=== PATIENT | female | born 1955 | race Caucasian/White ===

== ENCOUNTER → 2017-07-15 11:55 | Outpatient (CLI) | payer OTHER, SELFPAY | PROVIDERS: PCP Family Medicine; Visit Provider Physician Assistant | DX: R30.0 Dysuria (principal) | CPT/HCPCS: 87086 ==

== ENCOUNTER → 2017-09-07 14:26 | Outpatient (CLI) | payer OTHER, SELFPAY ==
[2017-09-07 14:47] LABS: Add Manual Diff / Slide Review NO; Basophils Percent Auto 0.6 % (0-2); Eosinophils Percent Auto 2.7 % (2-4); Hematocrit 40.4 % (36-46); Hemoglobin 13.7 g/dL (12.0-16.0); Lymphocytes Percent Auto 29.3 % (25-40); Mean Corpuscular HGB Conc 33.8 % (30-36); Mean Corpuscular Hemoglobin 30.6 PG (26-34); Mean Corpuscular Volume 90.7 fL (80-100); Monocytes Percent Auto 8.2 % (3-14); Neutrophils Absolute Auto 4600 /uL (3000-5900); Neutrophils Percent Auto 59.2 % (50-75); Platelet Count 224 X10^3/uL (150-400); Red Blood Cell Count 4.46 X10^6/uL (4.0-5.2); Red Cell Distribution Width 14.6 % (11.6-14.8); White Blood Cell Count 7.7 X10^3/uL (4.5-11.0)
[2017-09-07 14:59] LABS: Alanine Aminotransferase 33 IU/L (9-52); Albumin 4.9 g/dL (3.5-5.0); Albumin Globulin Ratio 1.5 (1.0-2.8); Alkaline Phosphatase 108 U/L (38-126); Aspartate Aminotransferase 36 IU/L (14-36); BUN Creatinine Ratio 20.9 (6-22); Bilirubin Total 0.9 mg/dL (0.2-1.3); Blood Urea Nitrogen 23 mg/dL (7-17); Calcium 10.4 mg/dL (8.4-10.2); Carbon Dioxide 26 mmol/L (22-32); Chloride 99 mmol/L (98-107); Estimated Glomerular Filt Rate 50.5 mL/min (>60); Globulin 3.3 g/dL (1.7-4.1); Glucose 181 mg/dL (80-110); HEMOLYSIS < 15 (0-50); Potassium 3.7 mmol/L (3.4-5.1); Sodium 140 mmol/L (137-145); Total Protein 8.2 g/dL (6.3-8.2)
[2017-09-07 15:01] LABS: Hemoglobin A1C% w Est Avg Glu 7.5 % (4.0-6.0)
[2017-09-07 15:18] LABS: Creatinine Urine Random 78.7 mg/dL
[2017-09-07 15:21] LABS: Microalbumi Creatinin Ratio Ur 43.2 ug/mg CR (<30); Microalbumin Urine Random 3.4 mg/dL (0-1.6)
[2017-09-07 15:45] LABS: TSH w/ Reflex to FT4 1.11 uIU/mL (0.47-4.68)
== END ==
PROVIDERS: Visit Provider Nurse Practitioner Family
DX: I10 Essential (primary) hypertension (principal); E11.9 Type 2 diabetes mellitus without complications
CPT/HCPCS: 36415; 80053; 82043; 82570; 83036; 84443; 85025

== ENCOUNTER → 2017-09-15 12:32 | Outpatient (CLI) | payer OTHER, SELFPAY ==
[2017-09-15 13:57] LABS: Cholesterol 152 mg/dL (140-199); HDL Cholesterol 44 mg/dL (40-60); LDL Cholesterol Calculated 59 mg/dL (<100); Triglycerides 245 mg/dL (35-150)
== END ==
PROVIDERS: PCP Family Medicine; Visit Provider Nurse Practitioner Family
DX: E11.9 Type 2 diabetes mellitus without complications (principal)
CPT/HCPCS: 36415; 80061; 99213

== ENCOUNTER 2017-10-01 13:26 | Emergency (ER) | payer OTHER, SELFPAY ==
[2017-10-01 13:27] VITALS: BP 159/98; PULSE 87; RESP 20; TEMP 36.7; O2SAT 95; BMI 37.4
--- NOTE | 2017-10-01 13:32 | DI.RAD.S_ITS ---
PROCEDURE: XR TOE RT MIN 2V INDICATIONS: injury, deformity TECHNIQUE: 3 views of the right fifth toe(s) acquired. COMPARISON: [facility] [place], [place], XR FOOT 3+ VIEWS BILATERAL, 09/27/2017, 7:34. FINDINGS: Evaluation is limited by difficulties with patient positioning. Bones: Mildly displaced fracture of the distal aspect of the proximal phalanx of the fifth digit. No suspicious bony lesions. Chronic periosteal thickening involving the shafts of the second, third, and fourth metatarsals, as before. Soft tissues: No suspicious soft tissue densities. IMPRESSION: Fifth digit fracture. Dictated by: Patricio Obrien M.D. on 10/01/2017 at 13:48 Approved by: Patricio Obrien M.D. on 10/01/2017 at 13:50
--- NOTE | 2017-10-01 15:26 | ED_ITS ---
HPI - Extremity Injury (Lower) <Funmi Cobian PA-C - Last Filed: 10/01/17 21:36> General Chief Complaint: Extremity Injury, Lower Stated Complaint: LITTLE TOE ON RIGHT FOOT POSS BROKEN Time Seen by Provider: 10/01/17 15:14 Source: patient Mode of arrival: ambulatory Limitations: no limitations History of Present Illness HPI Narrative: This 62-year-old female states that she moved on the floor from her right knee down onto the side of her leg and thinks she awkwardly hit or bent her right little toe in the process. She denies any other injury, but is sure that she broke it as she has had a fracture on the other side in the past. She states that the toe is quite painful even with reduced sensation from her neuropathy. She denies any other injury or trauma. She states that she has Percocet at home but unable to take this due to nausea with it. She is out of [facility]. Related Data Home Medications Medication Instructions Recorded Confirmed ASPIRIN (Aspirin Low Dose) 81 mg PO Q DAY #0 02/17/08 09/15/17 MULTIVITAMIN (Multivitamin 1 cap PO EVERY DAY #0 02/17/08 09/15/17 -) atorvastatin [Lipitor] PO HS #0 12/26/15 09/15/17 Previous Rx's Medication Instructions Recorded diltiazem HCl 120 mg PO QDAY #90 tab 10/17/15 cyclobenzaprine 10 mg PO BID PRN #60 tab 09/09/16 ondansetron [Zofran ODT] 4 mg SUBLINGUAL Q6HP PRN #30 odt 09/09/16 [SEE MAKERS FAX] SEE INSTRUCTIONS #15 11/03/16 [pen needles] units SQ 5XD #450 12/07/16 losartan [Cozaar] 25 mg PO Q DAY #90 mg 02/08/17 insulin lispro [Humalog U-100 15 - 20 unit SQ QID #5 box 03/24/17 Insulin] phenazopyridine [Pyridium] 200 mg PO TID #15 tab 04/19/17 montelukast 10 mg tablet 10 mg PO QDAY #90 tab 07/04/17 pantoprazole 40 mg tablet,delayed 40 mg PO BID #180 tab 07/12/17 release levothyroxine 137 mcg tablet 137 mcg PO QAM #90 tab 08/02/17 metformin 500 mg tablet 500 mg PO QDAY #90 tab 08/23/17 Glucose: Test Strips 0 str TP 5XD #450 str 08/25/17 gabapentin 300 mg capsule 300 mg PO BID #120 cap 09/13/17 hydrochlorothiazide 25 mg tablet 25 mg PO QDAY #90 tab 09/13/17 ibuprofen 800 mg tablet 800 mg PO Q8HP PRN #30 tab 09/13/17 insulin glargine (U-100) 100 See Label Instructions SUBCUT BID 09/13/17 unit/mL subcutaneous solution #6 unit oxycodone-acetaminophen 5 mg-325 1 tab PO Q6HP PRN #30 tab 09/13/17 mg tablet furosemide 20 mg tablet 20 mg PO PRN #90 tab 09/15/17 potassium chloride ER 20 mEq 20 meq PO DAILY PRN #90 tab 09/15/17 tablet,extended release ondansetron [Zofran ODT] 4 mg PO Q6-8H PRN #7 tab 10/01/17 Allergies Allergy/AdvReac Type Severity Reaction Status Date / Time clindamycin [CLINDAMYCIN] Allergy Unknown Verified 09/15/17 09:04 codeine [CODEINE] Allergy Unknown Verified 09/15/17 09:04 hydrocodone [HYDROCODONE] Allergy Unknown Verified 09/15/17 09:04 meperidine [MEPERIDINE] Allergy Unknown Verified 09/15/17 09:04 methadone [METHADONE] Allergy Unknown Verified 09/15/17 09:04 prednisone [PREDNISONE] Allergy Unknown hives Verified 09/15/17 09:04 Sulfa (Sulfonamide Allergy Unknown Verified 09/15/17 09:04 Antibiotics) [SULFA (SULFONAMIDE ANTIBIOTICS)] Review of Systems <Funmi Cobian PA-C - Last Filed: 10/01/17 21:36> Review of Systems All systems reviewed & are unremarkable except as noted in HPI and below Exam <Funmi Cobian PA-C - Last Filed: 10/01/17 21:36> Narrative Exam Narrative: GENERAL APPEARANCE: Patient sitting comfortably, in no distress. LUNGS: Clear to auscultation bilaterally. HEART: Rate and rhythm regular without murmur, normal S1 and S2, no S3 or S4. EXTREMITIES: No cyanosis or edema, right pedal pulses intact, brisk cap refill , right foot sensation is grossly intact DERMATOLOGIC: Right foot and toes, no open MUSCULOSKELETAL: Right mid to lateral toes all have some flexor deformity at the PIP joints, more pronounced in the little toe. They all appear similarly aligned. There is mild effusion in the right 5th toe, tender to palpation. No tenderness over the metatarsals or ankle joint, no tenderness over the other toes Initial Vital Signs Initial Vital Signs: Vital Signs Temperature 98.1 F 10/01/17 13:27 Pulse Rate 87 10/01/17 13:27 Respiratory Rate 20 10/01/17 13:27 Blood Pressure 159/98 H 10/01/17 13:27 Pulse Oximetry 95 10/01/17 13:27 <Tylor Fields MD - Last Filed: 10/02/17 07:42> Initial Vital Signs Initial Vital Signs: Vital Signs Temperature 98.1 F 10/01/17 13:27 Pulse Rate 87 10/01/17 13:27 Respiratory Rate 20 10/01/17 13:27 Blood Pressure 159/98 H 10/01/17 13:27 Pulse Oximetry 95 10/01/17 13:27 Course <Funmi Cobian PA-C - Last Filed: 10/01/17 21:36> Additional Information: Toes were karina taped and patient was able to ambulate. Orders Ordered: Discontinued Medications Ondansetron HCl (Zofran Odt) 4 mg PO NOW ONE Stop: 10/01/17 15:36 Last Admin: 10/01/17 15:42 Dose: 4 mg Oxycodone/Acetaminophen (Percocet 5/325) 1 tab PO NOW ONE Stop: 10/01/17 15:36 Last Admin: 10/01/17 15:45 Dose: 1 tab Vital Signs - 8 hr 10/01/17 13:27 Temperature 98.1 F Pulse Rate 87 Respiratory Rate 20 Blood Pressure 159/98 H Pulse Oximetry 95 <Tylor Fields MD - Last Filed: 10/02/17 07:42> Orders Ordered: Discontinued Medications Ondansetron HCl (Zofran Odt) 4 mg PO NOW ONE Stop: 10/01/17 15:36 Last Admin: 10/01/17 15:42 Dose: 4 mg Oxycodone/Acetaminophen (Percocet 5/325) 1 tab PO NOW ONE Stop: 10/01/17 15:36 Last Admin: 10/01/17 15:45 Dose: 1 tab Vital Signs - 8 hr 10/01/17 13:27 Temperature 98.1 F Pulse Rate 87 Respiratory Rate 20 Blood Pressure 159/98 H Pulse Oximetry 95 MDM - Extremity Injury (Lower) <Funmi Cobian PA-C - Last Filed: 10/01/17 21:36> Imaging Data extremity: Radiologist's impression: [address] [address] XRay Report Signed Patient: Meri Patino MR#: [id number] : 1955 Acct:[id number] Age/Sex: 62 / F Date of Service: 10/01/17 Loc: ED Accession Number: [id number] Procedure: XR toe RT min 2V Ordering Provider: Funmi Cobian P.A-C PROCEDURE: XR TOE RT MIN 2V INDICATIONS: injury, deformity TECHNIQUE: 3 views of the right fifth toe(s) acquired. COMPARISON: [facility], XR FOOT 3+ VIEWS BILATERAL, 09/27/2017, 7:34. FINDINGS: Evaluation is limited by difficulties with patient positioning. Bones: Mildly displaced fracture of the distal aspect of the proximal phalanx of the fifth digit. No suspicious bony lesions. Chronic periosteal thickening involving the shafts of the second, third, and fourth metatarsals, as before. Soft tissues: No suspicious soft tissue densities. IMPRESSION: Fifth digit fracture. Dictated by: Patricio Obrien M.D. on 10/01/2017 at 13:48 Approved by: Patricio Obrien M.D. on 10/01/2017 at 13:50 Discharge Plan Departure Patient Disposition: Home Clinical Impression: Closed fracture of toe Discharge Date/Time: 10/01/17 16:25 Interventions: ED Discharge Assessment Last Done: 10/01/17 16:25 Instructions: DI for Toe Fracture Activity Restrictions/Additional Instructions: You should return if you have any acutely worsening pain or new symptoms such as fever or more swelling, otherwise you can take your pain medicine you have at home as needed. I have sent in some antinausea medicine for you to take with that. Please keep the toes taped together for comfort and protection for 1 -2 months, and you should also wearing a stiff-soled shoe. Prescriptions: New ondansetron [Zofran ODT] 4 mg tablet,disintegrating 4 mg PO Q6-8H PRN (Reason: nausea/pain meds) Qty: 7 RF: 0 No Action ASPIRIN (Aspirin Low Dose) 81 mg PO Q DAY Qty: 0 RF: 0 MULTIVITAMIN (Multivitamin -) 1 cap PO EVERY DAY Qty: 0 RF: 0 diltiazem HCl 120 MG capsule,extended release 24hr 120 mg PO QDAY Qty: 90 RF: 3 atorvastatin [Lipitor] 20 mg Tablet PO HS Qty: 0 RF: 0 cyclobenzaprine 10 MG tablet 10 mg PO BID PRNQty: 60 RF: 3 ondansetron [Zofran ODT] 4 MG tablet,disintegrating 4 mg Sublingual Q6HP PRNQty: 30 RF: 3 [SEE MAKERS FAX] SEE INSTRUCTIONS Qty: 15 RF: 0 [pen needles] SQ 5XD Qty: 450 RF: 3 losartan [Cozaar] 25 MG tablet 25 mg PO Q DAY Qty: 90 RF: 3 insulin lispro [Humalog U-100 Insulin] 100 UNIT/1 ML cartridge 15 - 20 unit SQ QID Qty: 5 RF: 5 phenazopyridine [Pyridium] 200 MG tablet 200 mg PO TID Qty: 15 RF: 0 montelukast [Singulair] 10 mg tablet 10 mg PO QDAY Qty: 90 RF: 3 pantoprazole [Protonix] 40 mg tablet,delayed release (DR/EC) 40 mg PO BID Qty: 180 RF: 3 levothyroxine [Synthroid] 137 mcg tablet 137 mcg PO QAM Qty: 90 RF: 3 metformin [Glucophage] 500 mg tablet 500 mg PO QDAY Qty: 90 RF: 3 Glucose: Test Strips TP 5XD Qty: 450 RF: 6 furosemide [Lasix] 20 mg tablet 20 mg PO PRN Qty: 90 RF: 3 potassium chloride 20 mEq tablet extended release 20 meq PO DAILY PRN (Reason: edema) Qty: 90 RF: 3 hydrochlorothiazide 25 mg tablet 25 mg PO QDAY Qty: 90 RF: 3 gabapentin 300 mg capsule 300 mg PO BID Qty: 120 RF: 2 ibuprofen 800 mg tablet 800 mg PO Q8HP PRN (Reason: inflammation) Qty: 30 RF: 6 oxycodone-acetaminophen [Percocet] 5-325 mg tablet 1 tab PO Q6HP PRN (Reason: pain) Qty: 30 RF: 0 insulin glargine [Lantus U-100 Insulin] 100 unit/mL solution See Label Instructions SUBCUT BID Qty: 6 RF: 4 Referrals: She Tate DO [Primary Care Provider] - <Tylor Fields MD - Last Filed: 10/02/17 07:42> Sign Out Provider Sign Out Attestation: The PA/SUPERINTENDENT TRACK functioned independently for the care of this pt, I was available, but not asked to participate in care. I am unable to determine appropriateness of management without personally examining the pt.
[2017-10-01] MEDS: ONDANSETRON 4 MG ODT PO (15:42)
[2017-10-01] MEDS: OXYCODONE/ACETAMINOPHEN 5/325 TABLET 1 TAB PO (15:45)
== END 2017-10-01 16:25 | disposition home or self-care (01) ==
PROVIDERS: Emergency Provider Internal Medicine; PCP Family Medicine
DX: S92.501A Displaced unspecified fracture of right lesser toe(s), initial encounter for closed fracture (principal); W22.8XXA Striking against or struck by other objects, initial encounter
CPT/HCPCS: 73660; 99282; 99283

== ENCOUNTER → 2017-10-10 12:30 | Outpatient (CLI) | payer OTHER, SELFPAY | PROVIDERS: PCP Family Medicine; Visit Provider Physician Assistant | DX: N30.01 Acute cystitis with hematuria (principal) | CPT/HCPCS: 87077; 87086; 87186 ==

== ENCOUNTER → 2017-11-25 12:16 | Outpatient (CLI) | payer OTHER, SELFPAY | PROVIDERS: PCP Family Medicine; Visit Provider Physician Assistant | DX: N30.91 Cystitis, unspecified with hematuria (principal) | CPT/HCPCS: 87077; 87086 ==

== ENCOUNTER → 2017-12-19 17:07 | Outpatient (CLI) | payer OTHER, SELFPAY ==
[2017-12-19 17:38] LABS: Add Manual Diff / Slide Review NO; Basophils Percent Auto 0.7 % (0-2); Eosinophils Percent Auto 3.5 % (2-4); Hematocrit 41.1 % (36-46); Hemoglobin 13.8 g/dL (12.0-16.0); Lymphocytes Percent Auto 29.6 % (25-40); Mean Corpuscular HGB Conc 33.6 % (30-36); Mean Corpuscular Hemoglobin 30.7 PG (26-34); Mean Corpuscular Volume 91.4 fL (80-100); Monocytes Percent Auto 9.4 % (3-14); Neutrophils Absolute Auto 4300 /uL (3000-5900); Neutrophils Percent Auto 56.8 % (50-75); Platelet Count 235 X10^3/uL (150-400); Red Cell Distribution Width 14.9 % (11.6-14.8); White Blood Cell Count 7.7 X10^3/uL (4.5-11.0)
[2017-12-19 17:45] LABS: Hemoglobin A1C% w Est Avg Glu 7.7 % (4.0-6.0)
[2017-12-19 17:58] LABS: Alanine Aminotransferase 42 IU/L (9-52); Albumin 4.9 g/dL (3.5-5.0); Albumin Globulin Ratio 1.5 (1.0-2.8); Alkaline Phosphatase 119 U/L (38-126); Aspartate Aminotransferase 35 IU/L (14-36); Bilirubin Total 0.5 mg/dL (0.2-1.3); Blood Urea Nitrogen 22 mg/dL (7-17); Calcium 10.7 mg/dL (8.4-10.2); Carbon Dioxide 34 mmol/L (22-32); Chloride 98 mmol/L (98-107); Estimated Glomerular Filt Rate 50.5 mL/min (>60); Globulin 3.2 g/dL (1.7-4.1); Glucose 90 mg/dL (80-110); HEMOLYSIS < 15 (0-50); Potassium 4.2 mmol/L (3.4-5.1); Sodium 146 mmol/L (137-145); Total Protein 8.1 g/dL (6.3-8.2)
== END ==
PROVIDERS: PCP Family Medicine; Visit Provider Podiatrist
DX: Z01.818 Encounter for other preprocedural examination (principal); L97.512 Non-pressure chronic ulcer of other part of right foot with fat layer exposed; E11.42 Type 2 diabetes mellitus with diabetic polyneuropathy; S92.911A Unspecified fracture of right toe(s), initial encounter for closed fracture; Z01.812 Encounter for preprocedural laboratory examination; E11.9 Type 2 diabetes mellitus without complications
CPT/HCPCS: 36415; 80053; 83036; 85025; 93005

== ENCOUNTER → 2018-01-02 14:37 | Outpatient (CLI) | payer OTHER, SELFPAY | PROVIDERS: Family Provider Podiatrist; PCP Family Medicine; Visit Provider Family Medicine | DX: M85.852 Other specified disorders of bone density and structure, left thigh (principal); Z78.0 Asymptomatic menopausal state; E11.9 Type 2 diabetes mellitus without complications | CPT/HCPCS: 77080 ==

== ENCOUNTER → 2018-03-21 08:46 | Outpatient (CLI) | payer OTHER, SELFPAY ==
[2018-03-21 11:03] LABS: Hemoglobin A1C% w Est Avg Glu 7.9 % (4.0-6.0)
[2018-03-21 11:15] LABS: BUN Creatinine Ratio 17.3 (6-22); Blood Urea Nitrogen 19 mg/dL (7-17); Calcium 9.3 mg/dL (8.4-10.2); Carbon Dioxide 30 mmol/L (22-32); Chloride 100 mmol/L (98-107); Estimated Glomerular Filt Rate 50.5 mL/min (>60); Glucose 111 mg/dL (80-110); HEMOLYSIS 32 (0-50); Potassium 3.3 mmol/L (3.4-5.1); Sodium 141 mmol/L (137-145)
== END ==
PROVIDERS: Family Provider Podiatrist; PCP Family Medicine; Visit Provider Family Medicine
DX: E11.9 Type 2 diabetes mellitus without complications (principal)
CPT/HCPCS: 36415; 80048; 83036

== ENCOUNTER → 2018-04-01 11:19 | Outpatient (CLI) | payer OTHER, SELFPAY | PROVIDERS: Family Provider Podiatrist; PCP Family Medicine; Visit Provider Physician Assistant | DX: R30.0 Dysuria (principal) | CPT/HCPCS: 87077; 87086; 87186 ==

== ENCOUNTER → 2018-05-03 10:07 | Outpatient (CLI) | payer OTHER, SELFPAY ==
--- NOTE | 2018-05-03 14:11 | DIET.PN ---
DIABETES Nutrition Initial Assessment:? ASSESS:?? 63 yof seen for long standing history of type2 diabetes. Reports family hx of diabetes and that she was DX when she was 22. States she followed a diabetes diet for 12 yrs and was then told she no longer had DM. She has had uncontrolled DM since then. Pt recently started on the ketogenic diet which she has tried before. States since starting 2 weeks ago, blood glucose numbers have been significantly lower. She has been following a food tracker on her phone which counts all macronutrients. Reports she discontinued taking her metformin due to chronic GI complications and has stopped using Humalog as she was having low BG. LABS: Per pt report:? A1c: 7.9 FB-105 Tri ? MEDS:?? (active): lantus 25u BID (down from 40u) (discontinued): metformin 1000mg BID ; Humalog 15 u meals ? DIET: Calories: [id number] Carb: 30g Pro: 130g Fat:130g ? Weight: 253 (down from 261 x 2wk ago) Ht: 68.5? Exercise:? Just completed PT and is able to start walking again since recent foot surgery. NUTRITION DX 1. Altered Nutrition related labs related to impaired glucose metabolism, lack of previous exposure to accurate nutrition information as evidenced by pt report, dx of diabetes, previous diet high in refined carbohydrates.? INTERVENTION(s): 1. Discussed pathophysiology of diabetes. Reviewed A1c and its correlation to blood glucose numbers. Discussed recommended BG ranges. 2. Discussed importance of self-monitoring, how often, and when to check. 3. Reviewed hyper/hypoglycemia and treatment. 4. Discussed impact of nutrition/diet on blood sugar control.? Discussed fed versus non-fed state.?? 5. Discussed the effect of carbohydrates/protein/fat on blood sugar control.? Stressed importance of consistent carbohydrate intake at each meal and provided instructions for recommended servings/portions of carbohydrates/protein per meal. Provided pt with educational material. 6. Reviewed carbohydrate counting and measuring carbohydrate content via serving sizes and reading nutrition labels.? Provided handouts.?? 7. Discussed the difference between simple versus complex carbohydrates and the effect of fiber on blood sugar control.? Discussed various methods to increase fiber content in diet. 8. Stressed importance of meal timing and not going >4-5 hours between meals. Encouraged adding protein to each meal to support glucose control. Provided list of protein foods. Discussed best protein options for heart health and to alleviate hunger. Patient agreeable. 9. Discussed healthy weight loss through diet and exercise to increase lean muscle mass.? Pt agreeable to walking daily. 10. Recommended pt discuss medication management with PCP. MONITOR/EVALUATE: Anticipate good compliance.? Nutrition follow up schedule for 2 mo to review BG, weight, food record and discuss protein/fat.
== END ==
PROVIDERS: Family Provider Podiatrist; PCP Family Medicine; Visit Provider Family Medicine
DX: E11.9 Type 2 diabetes mellitus without complications (principal); Z79.4 Long term (current) use of insulin
CPT/HCPCS: 97802

== ENCOUNTER 2018-07-17 11:56 | Day surgery (SDC) | payer OTHER, SELFPAY ==
[2018-07-17] MEDS: SODIUM CHLORIDE 0.9% 1,000 ML 200 ML IV (12:32)
[2018-07-17 12:33] VITALS: BP 141/71; PULSE 82; RESP 16; TEMP 36.6; O2SAT 97; BMI 35.9
--- NOTE | 2018-07-17 13:29 | PM.HP.1 ---
History of Present Illness Date Patient Seen: 07/17/18 Time Patient Seen: 13:30 Chief complaint: [address] SCREENING COLONOSCOPY Narrative: Asymptomatic patient here for screening colonoscopy Patient History Medical History Essential hypertension (01/30/03) Type 2 diabetes mellitus (10/08/03) CTS (carpal tunnel syndrome) (Chronic 2015) Cardiac arrhythmia (Chronic) Chronic back pain (Chronic ~1987) Chronic cough (Chronic) Chronic headaches (Chronic ~1985) Diabetes mellitus (Chronic 1977) Frequent UTI (Chronic) GERD (gastroesophageal reflux disease) (Chronic) Gastroparesis (Chronic) Hayfever (Chronic) Hemorrhoids (Chronic) Hypothyroidism (Chronic 1999) Left knee pain (Chronic ~2001) Neuropathic pain of foot (Chronic ~1987) Osteoarthritis (Chronic 2013) Peripheral neuropathy (Chronic) Sleep apnea (Chronic) Ventricular tachycardia (Chronic) Anemia (Resolved) Asthma (Resolved) Ugalde's esophagus (Resolved 2012) Chicken pox (Resolved 1969) Foot fracture, left (Resolved 1989) Measles (Resolved 1962) Mumps (Resolved ~1969) Plantar warts (Resolved ~1972) Recurrent sinusitis (Resolved ~1976) Toe fracture, left (Resolved 2013) Vertigo (Resolved) Surgical History Anesthesia (Resolved) History of carpal tunnel release (Resolved 2014) History of cholecystectomy (Resolved ~2005) History of eye surgery (Resolved 1961) History of left knee surgery (Resolved 1972) History of surgery (Resolved 1999) History of thumb surgery (Resolved 2014) History of verrucae (wart) excision (Resolved 1974) Status post discectomy (Resolved 1999) Status post knee surgery (Resolved 2001) Status post laminectomy (Resolved 1987) Family History Child Age: 37 Mentally disabled Low TSH level Encephalitis Father Age: 86 Pacemaker Heart disease Hypertension Mother Diabetes mellitus High cholesterol Brain tumor Sister Age: 65 Hypertension Sister Age: 60 Diabetes mellitus Heart disease Hypertension High cholesterol Brother Diabetes mellitus Brother Hypertension Social History household members: spouse and family Smoking Status: Former smoker Family & Social History Family History Child Age: 37 Mentally disabled Low TSH level Encephalitis Father Age: 86 Pacemaker Heart disease Hypertension Mother Diabetes mellitus High cholesterol Brain tumor Sister Age: 65 Hypertension Sister Age: 60 Diabetes mellitus Heart disease Hypertension High cholesterol Brother Diabetes mellitus Brother Hypertension Social History: household members spouse,family Tobacco & Substance use: Smoking Status Former smoker Substance Use Type does not use Meds Home Medications Medication Instructions Recorded Confirmed Type ASPIRIN (Aspirin Low Dose) 81 mg PO Q DAY #0 02/17/08 07/17/18 History MULTIVITAMIN (Multivitamin 1 cap PO EVERY DAY #0 02/17/08 04/01/18 History -) atorvastatin [Lipitor] 20 mg PO HS #0 12/26/15 07/17/18 History levothyroxine 137 mcg tablet 137 mcg PO QAM #90 tab 08/02/17 04/01/18 Rx Glucose: Test Strips 0 str TP 5XD #450 str 08/25/17 04/01/18 Rx hydrochlorothiazide 25 mg tablet 25 mg PO QDAY #90 tab 09/13/17 07/17/18 Rx ibuprofen 800 mg tablet 800 mg PO Q8HP PRN #30 tab 09/13/17 07/17/18 Rx furosemide 20 mg tablet 20 mg PO PRN #90 tab 09/15/17 07/17/18 Rx potassium chloride ER 20 mEq 20 meq PO DAILY PRN #90 tab 09/15/17 04/01/18 Rx tablet,extended release cyclobenzaprine 10 mg tablet 10 mg PO BID PRN #60 tab 10/19/17 07/17/18 Rx [pen needles] units SQ 5XD #450 11/07/17 04/01/18 Rx cetirizine 10 mg capsule 10 mg PO DAILY 12/20/17 07/17/18 History diltiazem CD 120 mg 120 mg PO DAILY 12/20/17 07/17/18 History capsule,extended release 24 hr eszopiclone 3 mg tablet 3 mg PO BEDTIME 12/20/17 07/17/18 History losartan 25 mg tablet 25 mg PO Q DAY #90 mg 01/03/18 04/01/18 Rx insulin lispro (U- 100) 100 See Rx Instructions SUBCUT QID #15 04/03/18 07/17/18 Rx unit/mL subcutaneous cartridge ml pantoprazole 40 mg tablet,delayed 40 mg PO BID #180 tab 05/29/18 07/17/18 Rx release ondansetron HCl 4 mg tablet 4 mg PO Q6-8H PRN #30 tab 06/26/18 07/17/18 Rx montelukast 10 mg tablet 10 mg PO QDAY #90 tab 06/27/18 Rx gabapentin 300 mg PO QID 07/17/18 07/17/18 History insulin glargine [Lantus Solostar 42 unit SUBCUT BID 07/17/18 History U-100 Insulin] Allergies Allergy/AdvReac Type Severity Reaction Status Date / Time clindamycin [CLINDAMYCIN] Allergy Unknown Verified 04/01/18 11:08 codeine [CODEINE] Allergy Unknown Verified 04/01/18 11:08 hydrocodone [HYDROCODONE] Allergy Unknown Verified 04/01/18 11:08 meperidine [MEPERIDINE] Allergy Unknown Verified 04/01/18 11:08 methadone [METHADONE] Allergy Unknown Verified 04/01/18 11:08 prednisone [PREDNISONE] Allergy Unknown hives Verified 04/01/18 11:08 Sulfa (Sulfonamide Allergy Unknown Verified 04/01/18 11:08 Antibiotics) [SULFA (SULFONAMIDE ANTIBIOTICS)] Review of Systems Review of Systems All systems reviewed & are unremarkable except as noted in HPI and below Exam Vital Signs (past 8 hours): - 07/17/18 12:33 Temperature 97.9 F Pulse Rate 82 Respiratory Rate 16 Blood Pressure 141/71 H Pulse Oximetry 97 Oxygen Delivery Method Room Air Narrative Exam Narrative: Patient is alert and oriented Lungs are clear with no rales or wheezes Heart regular rhythm no murmur Abdomen soft and nontender Rectal will be done at colonoscopy Assessment & Plan Assessment & Plan narrative: Patient is here for screening colonoscopy she understands the procedure and agrees
[2018-07-17] MEDS: fentaNYL 250 MCG/5 ML INJ IV (14:00)
[2018-07-17] MEDS: MIDAZOLAM 5 MG/5 ML VIAL IV (14:01)
--- NOTE | 2018-07-17 14:04 | PM.OP.ENDO ---
Operative Date/Time/Diagnoses Date of procedure: 07/17/18 Time of procedure: 14:04 Pre-op diagnosis: Screening colonoscopy Post-op diagnosis: same Procedure & Clinicians Study performed: Total colonoscopy to the cecum Same procedure as scheduled: Yes Surgeon: Benjamín Young Procedure Notes SCOAP/Timeout: Was done Procedure in detail: After satisfactory patient identification during surgical pause the flexible fiberoptic colonoscope was introduced transanally to the cecum. There are no polyps no tumors no ulcerations no diverticulosis. No abnormalities were encountered. Scope withdrawal time: 7 Sedation minutes: 20 Specimen(s): none sent Complications: none Impression: Normal colonoscopy Recommendations: Colonscopy in 10 years
[2018-07-17 14:07] VITALS: BP 131/70; PULSE 69; RESP 14; TEMP 36.2; O2SAT 95
[2018-07-17 14:12] VITALS: BP 131/66; PULSE 68; RESP 9; O2SAT 94
[2018-07-17 14:17] VITALS: BP 145/79; PULSE 78; RESP 13; O2SAT 96
[2018-07-17 14:25] VITALS: BP 114/70; PULSE 79; RESP 18; TEMP 36.1; O2SAT 96
== END 2018-07-17 14:54 | disposition home or self-care (01) ==
PROVIDERS: PCP Family Medicine; Visit Provider Surgery
PROC: 0DJD8ZZ Inspection of Lower Intestinal Tract, Via Natural or Artificial Opening Endoscopic (ICD-10-PCS; CPT 45378; principal; 2018-07-17 13:45)
DX: Z12.11 Encounter for screening for malignant neoplasm of colon (principal); I10 Essential (primary) hypertension; E11.9 Type 2 diabetes mellitus without complications; Z87.891 Personal history of nicotine dependence; Z79.4 Long term (current) use of insulin
CPT/HCPCS: 45378; 99152; J2250; J3010

== ENCOUNTER → 2018-07-19 10:37 | Outpatient (CLI) | payer OTHER, SELFPAY ==
--- NOTE | 2018-07-19 10:38 | DIET.PN ---
INDIVIDUAL NUTRITION ASSESSMENT? ? ASSESS:?Pt seen for diabetes nutrition F/U. Pt continues to follow ketogenic diet since April. She has been tracking meals on a food tracker which provides calories and macros consumed. Discussed current medication management. Pt discontinued metformin due to diarrhea and has made self adjustments to insulin regimen. Continue to take humalog with adjustments based on pre-prandial BG. Evening BG remain elevated. Pt also complains of chronic pain in feet and jaw making it difficult to sleep. Reports an increase in gabapentin which she believes is causing hand spasms. Pt is scheduled to see an disability manager in August. ? LABS: A1c: 7.9 FB-197 2 hr PP:??67-200 (several >200 during last 2 wks) ? Weight: 245 (down from 253) Meds: Humalog. Pt began dosing insulin based on BG > 100. Ex. 130mg/dl= 13u ; 180mg/dl= 18u Recommended pt discuss with Endo. ? DIET: Filemon: 1600 Carb: 30-35g Fat: 130g Pro: 104g ? EXERCISE:??recently was able to start walking. Up to 4 mi most days. Some water exercise. ? NUTRITION Dx? 1. Altered nutrition related labs r/t type 2 DM, inconsistent carbohydrate intake as evidenced by pt report, dietary recall.?? ? INTERVENTION? 1. Reviewed blood sugar log and implications/reasons for elevated/decreased blood sugar.? Pt with good understanding.? 2. Reviewed carbohydrate counting and importance of consistent carbohydrate intake.? 3. Reviewed meal intake and importance of balanced meals (ren to prevent overeating).??? 4. Provided information on fat/protein intake. Discussed difficulty in fat digestion with gallbladder removal. Discussed possibility of high fat diet causing some GI discomfort and frequent diarrhea. 5. Provided information on sick day guidelines. Goals: 1. Pt to discuss med management at endocrinology visit. 2. Pt will continue to monitor and keep record of BG and food intake. MONITOR/EVALUATE: Pt receptive to information provided.? Follow up scheduled for 1 mo after endo visit.
== END ==
PROVIDERS: PCP Family Medicine; Visit Provider Family Medicine
DX: E11.9 Type 2 diabetes mellitus without complications (principal)
CPT/HCPCS: 97803

== ENCOUNTER → 2018-07-22 09:42 | Outpatient (CLI) | payer OTHER, SELFPAY | PROVIDERS: PCP Family Medicine; Visit Provider Physician Assistant | DX: N34.3 Urethral syndrome, unspecified (principal); R30.0 Dysuria | CPT/HCPCS: 87077; 87086; 87186; 87210 ==

== ENCOUNTER → 2018-09-06 10:30 | Outpatient (CLI) | payer OTHER, SELFPAY ==
--- NOTE | 2018-09-06 15:06 | DIET.PN ---
Dietary Progress Note Assessment: Pt recently met with an supervisor looping regarding her diabetes care. She has been very frustrated with inconsistent BG readings, particularly elevated FBG. Pt admits today she has not been managing her medication appropriately and has been taking her humalog post meal time to lower post prandial readings. She also admits she will often not take any insulin at all and is not sure how she should be sliding her insulin amounts. Pt continues to complain of chronic pain making it difficult to sleep most nights. WT: 248 (up from 245) Labs: A1c: 7.5 (08/29/18) 7.9 (07/19/18) Nutrition Diagnosis: Altered nutrition related lab values r/t DX diabetes aeb pt report, dietary recall. Interventions: 1. Reviewed reasons for elevated BG. Discussed importance of taking medication consistently and prior to meals based on current BG and cho amount to be eaten. 2. Patient may be going on victoza per pt report. Will weight for update. 3. Plan to f/u with pt to go over insulin management. Monitoring/Evaluations: Will f/u with Dr. Munoz's ([facility]) plans to initiate victoza. Plan to meet with pt to discuss medication (insulin) management.
== END ==
PROVIDERS: PCP Family Medicine; Visit Provider Family Medicine
DX: E11.9 Type 2 diabetes mellitus without complications (principal)
CPT/HCPCS: 97803

== ENCOUNTER → 2018-09-30 09:10 | Outpatient (CLI) | payer OTHER, SELFPAY ==
--- NOTE | 2018-09-30 | DI.MG.S_ITS ---
BILATERAL DIGITAL SCREENING MAMMOGRAM 3D/2D WITH CAD: 09/30/2018 CLINICAL: Routine screening. Family history of breast cancer. Comparison is made to exams dated: 08/12/2016 mammogram, 09/22/2012 mammogram, and 08/24/2011 mammogram - [facility]. There are scattered fibroglandular elements in both breasts. Current study was also evaluated with a Computer Aided Detection (CAD) system. No significant masses, calcifications, or other findings are seen in either breast. There has been no significant interval change. IMPRESSION: NEGATIVE There is no mammographic evidence of malignancy. A 1 year screening mammogram is recommended. This exam was interpreted at Station ID: [id number]. NOTE: For mammograms, a report in lay terms will be sent to the patient. Approximately 15% of breast malignancies will not be visualized mammographically. In the management of a palpable breast mass, a negative mammogram must not discourage biopsy of a clinically suspicious lesion. Electronically Signed By: Denis porter/bravo:10/02/2018 06:38:36 letter sent: Normal Exam ACR BI-RADS Category 1: Negative [id number]
== END ==
PROVIDERS: PCP Family Medicine; Visit Provider Family Medicine
DX: Z12.31 Encounter for screening mammogram for malignant neoplasm of breast (principal); Z85.3 Personal history of malignant neoplasm of breast
CPT/HCPCS: 77063; 77067

== ENCOUNTER → 2018-11-24 16:38 | Outpatient (CLI) | payer OTHER, SELFPAY ==
[2018-11-24 18:06] LABS: BUN Creatinine Ratio 29.2 (6-22); Blood Urea Nitrogen 35 mg/dL (7-17); Calcium 10.1 mg/dL (8.4-10.2); Carbon Dioxide 30 mmol/L (22-32); Chloride 97 mmol/L (98-107); Estimated Glomerular Filt Rate 45.5 mL/min (>60); Glucose 178 mg/dL (80-110); HEMOLYSIS < 15 (0-50); Magnesium 1.9 mg/dL (1.6-2.3); Potassium 3.3 mmol/L (3.4-5.1); Sodium 139 mmol/L (137-145)
== END ==
PROVIDERS: Family Provider Family Medicine; PCP Family Medicine; Visit Provider Internal Medicine Cardiovascular Disease
DX: R00.2 Palpitations (principal); I49.3 Ventricular premature depolarization
CPT/HCPCS: 36415; 80048; 83735

== ENCOUNTER → 2018-12-06 10:29 | Outpatient (CLI) | payer OTHER, SELFPAY ==
[2018-12-06 12:01] LABS: BUN Creatinine Ratio 35.8 (6-22); Blood Urea Nitrogen 43 mg/dL (7-17); Calcium 10.7 mg/dL (8.4-10.2); Carbon Dioxide 32 mmol/L (22-32); Chloride 99 mmol/L (98-107); Estimated Glomerular Filt Rate 45.5 mL/min (>60); Glucose 77 mg/dL (80-110); HEMOLYSIS < 15 (0-50); Potassium 4.3 mmol/L (3.4-5.1); Sodium 141 mmol/L (137-145)
== END ==
PROVIDERS: Family Provider Family Medicine; PCP Family Medicine; Visit Provider Internal Medicine Cardiovascular Disease
DX: R00.2 Palpitations (principal)
CPT/HCPCS: 36415; 80048

== ENCOUNTER → 2018-12-24 09:40 | Outpatient (CLI) | payer OTHER, SELFPAY | PROVIDERS: Family Provider Family Medicine; PCP Family Medicine; Visit Provider Physician Assistant | DX: R30.0 Dysuria (principal) | CPT/HCPCS: 87077; 87086; 87186 ==

== ENCOUNTER → 2019-01-08 12:02 | Outpatient (CLI) | payer OTHER, SELFPAY ==
[2019-01-08 13:09] LABS: Blood Urea Nitrogen 25 mg/dL (7-17); Calcium 10.1 mg/dL (8.4-10.2); Carbon Dioxide 30 mmol/L (22-32); Chloride 101 mmol/L (98-107); Estimated Glomerular Filt Rate 56.2 mL/min (>60); Glucose 130 mg/dL (80-110); HEMOLYSIS 16 (0-50); Potassium 3.8 mmol/L (3.4-5.1); Sodium 138 mmol/L (137-145)
== END ==
PROVIDERS: Family Provider Internal Medicine Endocrinology, Diabetes & Metabolism; PCP Family Medicine; Visit Provider Family Medicine
DX: N18.9 Chronic kidney disease, unspecified (principal)
CPT/HCPCS: 36415; 80048

== ENCOUNTER → 2019-05-01 09:57 | Outpatient (CLI) | payer OTHER, SELFPAY ==
[2019-05-01 11:23] LABS: BUN Creatinine Ratio 23.8 (6-22); Blood Urea Nitrogen 24 mg/dL (7-17); Calcium 9.9 mg/dL (8.4-10.2); Carbon Dioxide 27 mmol/L (22-32); Chloride 102 mmol/L (98-107); Estimated Glomerular Filt Rate 55.4 mL/min (>60); Glucose 305 mg/dL (80-110); HEMOLYSIS < 15 (0-50); Potassium 4.2 mmol/L (3.4-5.1); Sodium 136 mmol/L (137-145)
[2019-05-02 11:00] LABS: Alanine Aminotransferase 20 IU/L (<35); Albumin Globulin Ratio 1.3 (1.0-2.8); Alkaline Phosphatase 157 U/L (38-126); Aspartate Aminotransferase 24 IU/L (14-36); Bilirubin Total 0.6 mg/dL (0.2-1.3); Cholesterol 190 mg/dL (140-199); Globulin 3.2 g/dL (1.7-4.1); HDL Cholesterol 33 mg/dL (40-60); Total Protein 7.2 g/dL (6.3-8.2)
[2019-05-02 11:10] LABS: Triglycerides 666 mg/dL (35-150)
== END ==
PROVIDERS: Family Provider Internal Medicine Endocrinology, Diabetes & Metabolism; PCP Family Medicine; Referring Provider Internal Medicine Cardiovascular Disease; Visit Provider Internal Medicine Cardiovascular Disease
DX: R00.2 Palpitations (principal)
CPT/HCPCS: 36415; 80048; 80053; 80061

== ENCOUNTER → 2019-07-26 15:09 | Outpatient (CLI) | payer OTHER, SELFPAY | PROVIDERS: Family Provider Internal Medicine Endocrinology, Diabetes & Metabolism; PCP Family Medicine; Referring Provider Family Medicine; Visit Provider Family Medicine | DX: E11.43 Type 2 diabetes mellitus with diabetic autonomic (poly)neuropathy (principal); L84 Corns and callosities | CPT/HCPCS: 99203; 99214 ==

== ENCOUNTER → 2019-10-04 09:17 | Outpatient (CLI) | payer OTHER, SELFPAY ==
[2019-10-04 11:18] LABS: Vitamin B12 461 pg/mL (239-931)
== END ==
PROVIDERS: Family Provider Internal Medicine Endocrinology, Diabetes & Metabolism; PCP Family Medicine; Referring Provider Family Medicine; Visit Provider Family Medicine
DX: E11.40 Type 2 diabetes mellitus with diabetic neuropathy, unspecified (principal)
CPT/HCPCS: 36415; 82607

== ENCOUNTER → 2020-03-06 09:26 | Outpatient (CLI) | payer OTHER, SELFPAY ==
[2020-03-06 09:36] LABS: Bacteria Urine None Seen; RBC Urine None Seen (0-5/HPF); WBC Urine None Seen (0-5/HPF)
[2020-03-06 10:26] LABS: Appearance Urine UA CLEAR; Bilirubin Urine UA NEGATIVE (NEGATIVE); Color Urine UA YELLOW; Glucose Urine UA NEGATIVE (Negative); Ketones Urine UA NEGATIVE (NEGATIVE); Leukocyte Esterase Urine UA NEGATIVE (NEGATIVE); Nitrite Urine UA NEGATIVE (Negative); Occult Blood Urine UA NEGATIVE (Negative); Protein Urine UA NEGATIVE (Negative); Specific Gravity Urine UA 1.025 (1.000-1.035); Urobilinogen Urine UA 0.2 E.U./dL (0.2); pH Urine UA 5.5 (4.5-8.0)
[2020-03-06 10:27] LABS: Add Manual Diff / Slide Review NO; Basophils Absolute Auto 0 /uL (0-100); Basophils Percent Auto 0.7 % (0-2); Eosinophils Absolute Auto 200 /uL (0-450); Eosinophils Percent Auto 4.4 % (2-4); Hematocrit 37.7 % (36-46); Hemoglobin 12.4 g/dL (12.0-16.0); Lymphocytes Absolute Auto 1800 /uL (1100-4500); Mean Corpuscular Volume 93.9 fL (80-100); Monocytes Absolute Auto 500 /uL (0-900); Monocytes Percent Auto 10.8 % (3-14); Neutrophils Absolute Auto 2400 /uL (1500-7000); Neutrophils Percent Auto 48.1 % (50-75); Platelet Count 236 X10^3/uL (150-400); Red Blood Cell Count 4.02 X10^6/uL (4.0-5.2); Red Cell Distribution Width 13.7 % (11.6-14.8)
[2020-03-06 10:34] LABS: Albumin 4.5 g/dL (3.5-5.0); BUN Creatinine Ratio 24.8 (6-22); Blood Urea Nitrogen 33 mg/dL (7-17); Calcium 10.5 mg/dL (8.4-10.2); Carbon Dioxide 31 mmol/L (22-32); Chloride 103 mmol/L (98-107); Culture Indicated Urine Cult Not Indicated; Estimated Glomerular Filt Rate 40.3 mL/min (>60); Glucose 134 mg/dL (80-110); HEMOLYSIS < 15 (0-50); Phosphorous 3.7 mg/dL (2.8-4.1); Potassium 3.4 mmol/L (3.4-5.1); Sodium 140 mmol/L (137-145); Urine Comments Microscopic Normal
[2020-03-07 07:36] LABS: Parathyroid Hormone Int 43 pg/mL (15-65)
== END ==
PROVIDERS: Family Provider Internal Medicine Endocrinology, Diabetes & Metabolism; PCP Family Medicine; Referring Provider Internal Medicine Nephrology; Visit Provider Internal Medicine Nephrology
DX: N18.30 Chronic kidney disease, stage 3 unspecified (principal)
CPT/HCPCS: 36415; 80069; 81001; 83970; 85025

== ENCOUNTER → 2020-06-17 14:38 | Outpatient (CLI) | payer OTHER, SELFPAY ==
--- NOTE | 2020-06-17 14:40 | DI.RAD.S_ITS ---
PROCEDURE: XR CHEST 2V INDICATIONS: wheezing TECHNIQUE: 2 views of the chest were acquired. COMPARISON: [facility], CHEST 2 VIEW, 11/15/2012, 12:13. [facility], CHEST 1 VIEW, 06/13/2012, 15:20. FINDINGS: Surgical changes and devices: None. Lungs and pleura: Lungs are clear. No pleural effusions or pneumothorax. Mediastinum: Mediastinal contours are normal. Heart size is normal. Bones and chest wall: No suspicious bony abnormalities. Soft tissues appear unremarkable. IMPRESSION: Normal for age, source of current wheezing symptoms is not seen. Dictated by: Filippo Ram M.D. on 06/17/2020 at 15:44 Approved by: Filippo Ram M.D. on 06/17/2020 at 15:45
== END ==
PROVIDERS: Family Provider Internal Medicine Endocrinology, Diabetes & Metabolism; PCP Family Medicine; Referring Provider Family Medicine; Visit Provider Family Medicine
DX: R06.2 Wheezing (principal)
CPT/HCPCS: 71046

== ENCOUNTER → 2020-07-17 08:26 | Outpatient (CLI) | payer OTHER, SELFPAY ==
[2020-07-17 09:12] LABS: COVID19 -Nasal RAPID Negative (Negative)
== END ==
PROVIDERS: Family Provider Internal Medicine Endocrinology, Diabetes & Metabolism; PCP Family Medicine; Referring Provider Internal Medicine; Visit Provider Internal Medicine
DX: Z20.822 Contact with and (suspected) exposure to COVID-19 (principal)
CPT/HCPCS: 87635; C9803

== ENCOUNTER → 2020-07-18 06:52 | Outpatient (CLI) | payer OTHER, SELFPAY ==
--- NOTE | 2020-07-23 09:23 | PM.PFT.1 ---
Pulmonary Function Test Referral & Results Date Patient Seen: 07/18/20 Requesting provider: She Tate Indication: COPD Results: The spirometry demonstrates an FVC of 3.01 L which is 80% of predicted. The FEV1 was measured at 2.39 L which is 82% of predicted. The FEV1/FVC ratio was 79 which is 102% of predicted. Following the administration of bronchodilator there was no appreciable change. Lung volumes show an SVC of 3.06 L which is 89% of predicted. The diffusing capacity was measured at 21.94 which is 72% of predicted. No hemoglobin value was provided, so no correction for potential anemia could be made, if appropriate. The maximum voluntary ventilation was normal Interpretation: This study demonstrates perhaps mild obstructive lung disease based on minimal reduction FEV1 although FEV1/FVC ratio is preserved and there is no evidence of benefit following bronchodilator. Shape a flow volume loop really does not support obstructive lung disease however Lung volumes are normal There is a minimal reduction in diffusing capacity suggesting the possibility of some disease at the capillary alveolar level, unless patient is anemic Clinical correlation suggested
== END ==
PROVIDERS: Family Provider Internal Medicine Endocrinology, Diabetes & Metabolism; PCP Family Medicine; Referring Provider Family Medicine; Visit Provider Family Medicine
DX: J44.9 Chronic obstructive pulmonary disease, unspecified (principal); R06.02 Shortness of breath
CPT/HCPCS: 94060; 94726; 94729

== ENCOUNTER 2020-08-08 13:01 | Emergency (ER) | payer OTHER, SELFPAY ==
[2020-08-08 13:08] VITALS: BP 128/65; PULSE 89; RESP 16; TEMP 36.3; O2SAT 98; BMI 40.3
--- NOTE | 2020-08-08 13:20 | DI.RAD.S_ITS ---
PROCEDURE: XR ANKLE LT MIN 3V INDICATIONS: ankle injury TECHNIQUE: 3 views of the ankle were acquired. COMPARISON: None. FINDINGS: Bones: Acute oblique fracture through base of medial malleolus is seen with slight lateral displacement at fracture site. Ankle mortise is normally aligned. No suspicious bony lesions. Soft tissues: No tibiotalar joint effusion. Achilles tendon appears normal. IMPRESSION: Acute slightly displaced medial malleolus fracture as above. Dictated by: Momo Christine M.D. on 08/08/2020 at 14:30 Approved by: Momo Christine M.D. on 08/08/2020 at 14:31
[2020-08-08 13:37] LABS: Add Manual Diff / Slide Review NO; Basophils Absolute Auto 0 /uL (0-100); Basophils Percent Auto 0.5 % (0-2); Eosinophils Absolute Auto 300 /uL (0-450); Eosinophils Percent Auto 3.4 % (2-4); Hematocrit 36.3 % (36-46); Hemoglobin 12.1 g/dL (12.0-16.0); Lymphocytes Absolute Auto 1700 /uL (1100-4500); Mean Corpuscular HGB Conc 33.4 % (30-36); Mean Corpuscular Hemoglobin 31.5 PG (26-34); Mean Corpuscular Volume 94.3 fL (80-100); Monocytes Absolute Auto 700 /uL (0-900); Monocytes Percent Auto 8.4 % (3-14); Neutrophils Absolute Auto 5200 /uL (1500-7000); Neutrophils Percent Auto 66.7 % (50-75); Platelet Count 210 X10^3/uL (150-400); Red Blood Cell Count 3.85 X10^6/uL (4.0-5.2); White Blood Cell Count 7.8 X10^3/uL (4.5-11.0)
[2020-08-08 13:46] LABS: Alanine Aminotransferase 30 IU/L (<35); Albumin 4.3 g/dL (3.5-5.0); Albumin Globulin Ratio 1.3 (1.0-2.8); Alkaline Phosphatase 75 U/L (38-126); Aspartate Aminotransferase 37 IU/L (14-36); BUN Creatinine Ratio 20.7 (6-22); Bilirubin Total 0.7 mg/dL (0.2-1.3); Blood Urea Nitrogen 28 mg/dL (7-17); Calcium 10.5 mg/dL (8.4-10.2); Carbon Dioxide 27 mmol/L (22-32); Chloride 105 mmol/L (98-107); Creatine Kinase 122 U/L (30-135); Estimated Glomerular Filt Rate 39.5 mL/min (>60); Globulin 3.3 g/dL (1.7-4.1); Glucose 205 mg/dL (80-110); HEMOLYSIS < 15 (0-50); Potassium 4.1 mmol/L (3.4-5.1); Sodium 140 mmol/L (137-145); Total Protein 7.6 g/dL (6.3-8.2)
[2020-08-08 13:57] LABS: Troponin I < 0.012 ng/mL (0.01-0.034)
[2020-08-08 14:01] LABS: CKMB % Relative Index 0.8 % (1.5-5.0); Creatine Kinase MB 0.92 ng/mL (<2.37)
--- NOTE | 2020-08-08 19:31 | ED.SYNCOPE ---
HPI - Syncope General Chief Complaint: Syncope Stated Complaint: passed out last night landed on left ankle Time Seen by Provider: 08/08/20 19:08 Source: patient Mode of arrival: Wheelchair Limitations: no limitations History of Present Illness HPI narrative: 65-year-old female former smoker with history of hypertension diabetes and chronic kidney disease presents from the walk-in clinic with a family member and a chief complaint of left ankle pain after a fall early this morning. She had been in her normal state of health yesterday and went to sleep like normal. She states that she woke up at about 4:00 a.m. and was walking to the restroom and then woke up on the floor. She states that she thinks she passed out. She denies any head neck or back pain. She has no chest pain or shortness of breath. She denies any injury other than her left ankle. She has had no new medications and denies being ill recently with no nausea, vomiting or diarrhea. MD complaint: loss of consciousness Onset (ago): hour(s) Prodromal symptoms: none Witnessed: no Context: getting out of bed Injuries sustained associated with event: none Current symptoms: none Treatments prior to arrival: none Related Data Home Medications Medication Instructions Recorded Confirmed MULTIVITAMIN (Multivitamin 1 cap PO EVERY DAY #0 02/17/08 07/03/19 -) atorvastatin [Lipitor] 20 mg PO HS #0 12/26/15 07/03/19 Respironics System One 60 series #1 ea 09/29/18 07/03/19 BIPAP bisoprolol fumarate 5 mg tablet 5 mg PO DAILY tab 12/07/18 07/03/19 flash glucose scanning reader #1 ea 01/01/20 01/01/20 pantoprazole 40 mg tablet,delayed 40 mg PO DAILY tab 01/01/20 release Previous Rx's Medication Instructions Recorded furosemide 20 mg tablet 20 mg PO PRN #90 tab 09/15/17 potassium chloride 20 mEq 20 meq PO DAILY PRN #90 tab 09/15/17 tablet,extended release blood sugar diagnostic #450 each 09/28/18 [pen needles] See Rx Instructions SUBCUT 5XD 10/26/18 #450 unit hydrochlorothiazide 25 mg tablet See Rx Instructions .ROUTE 11/27/18 .COMPLEX #90 tablet losartan 25 mg tablet 25 mg PO Q DAY #90 mg 01/12/19 insulin lispro 100 unit/mL See Rx Instructions SUBCUT QID #36 09/18/19 subcutaneous cartridge ml eszopiclone 3 mg tablet 3 mg PO BEDTIME #30 tab 09/28/19 ondansetron HCl 4 mg tablet 4 mg PO Q6-8H PRN #30 tab 11/02/19 ibuprofen 800 mg tablet 800 mg PO Q8HP PRN #30 tab 12/27/19 levothyroxine 137 mcg tablet 137 mcg PO DAILY #90 tab 02/18/20 duloxetine 60 mg capsule,delayed 120 mg PO DAILY #180 cap 04/15/20 release insulin glargine 100 unit/mL (3 60 unit SUBCUT BID #90 day 04/25/20 mL) subcutaneous pen albuterol sulfate 90 mcg/actuation 2 puff INHALATION Q6H PRN #6.7 g 05/08/20 aerosol inhaler montelukast 10 mg tablet See Rx Instructions .ROUTE 05/20/20 .COMPLEX #90 tab oxycodone-acetaminophen 5 mg-325 1 tab PO Q6HP PRN #25 tab 06/17/20 mg tablet cyclobenzaprine 10 mg tablet See Rx Instructions .ROUTE 07/10/20 .COMPLEX #60 tab ondansetron 4 mg PO TID-QID PRN #10 tab 08/08/20 oxycodone 5 mg PO Q4-6H PRN #20 tab 08/08/20 Allergies Allergy/AdvReac Type Severity Reaction Status Date / Time clindamycin [CLINDAMYCIN] Allergy Unknown Verified 08/08/20 13:08 codeine [CODEINE] Allergy Unknown Verified 08/08/20 13:08 hydrocodone [HYDROCODONE] Allergy Unknown Verified 08/08/20 13:08 meperidine [MEPERIDINE] Allergy Unknown Verified 08/08/20 13:08 methadone [METHADONE] Allergy Unknown Verified 08/08/20 13:08 prednisone [PREDNISONE] Allergy Unknown hives Verified 08/08/20 13:08 Sulfa (Sulfonamide Allergy Unknown Verified 08/08/20 13:08 Antibiotics) [SULFA (SULFONAMIDE ANTIBIOTICS)] Review of Systems Constitutional Constitutional: Denies chills, Denies fatigue, Denies fever(s), Denies frequent falls, Denies lethargy and Denies weakness Eyes Eyes: Denies change in vision, Denies eye discharge, Denies irritation and Denies loss of vision ENT Ears, Nose, Mouth, and Throat: Denies change in voice, Denies dizziness, Denies neck pain, Denies sore throat and Denies throat swelling Cardiovascular Cardiovascular: Denies chest pain, Denies irregular heart rhythm, Denies lightheadedness, Denies palpitations, Denies dyspnea, Denies dyspnea on exertion and Denies orthopnea Respiratory Respiratory: Denies cough, Denies dyspnea, Denies dyspnea on exertion and Denies wheezing Gastrointestinal Gastrointestinal: Denies abdominal pain, Denies change in bowel habits, Denies diarrhea, Denies nausea and Denies vomiting Musculoskeletal Musculoskeletal: Reports arthralgias, Reports joint swelling, Denies neck pain and Denies numbness Integumentary/Breasts Skin/Breast: Denies pruritus, Denies erythema, Denies rash and Denies wounds Neurologic Neurologic: Denies behavioral changes, Denies confusion, Denies dizziness, Denies frequent falls, Denies loss of vision, Denies numbness and Denies weakness Psychiatric Psychiatric: Denies anxiety, Denies behavioral changes, Denies confusion, Denies depression, Denies homicidal ideation and Denies suicidal ideation Endocrine Endocrine: Denies fatigue, Denies flushing and Denies palpitations Hematologic/Lymphatic Hematologic/Lymphatic: Denies easy bruising Allergic/Immunologic Allergic/Immunologic: Denies urticaria, Denies throat swelling and Denies wheezing Patient History Medical History Anemia Asthma Ugalde's esophagus (2012) Cardiac arrhythmia Chicken pox (1969) Chronic back pain (~1987) Chronic cough Chronic headaches (~1985) Chronic kidney disease Chronic prescription opiate use CTS (carpal tunnel syndrome) (2015) Diabetes mellitus (1977) Diabetic neuropathy Essential hypertension (01/30/03) Foot fracture, left (1989) Frequent UTI Gastroparesis GERD (gastroesophageal reflux disease) Hayfever Hemorrhoids Hypothyroidism (1999) Left knee pain (~2001) Measles (1962) Meniere's disease, unspecified (01/18/02) Mumps (~1969) Neuropathic pain of foot (~1987) Obstructive sleep apnea Osteoarthritis (2013) Peripheral neuropathy Plantar warts (~1972) Recurrent sinusitis (~1976) Sleep apnea Toe fracture, left (2013) Type 2 diabetes mellitus (10/08/03) Ventricular tachycardia Vertigo Surgical History Anesthesia History of carpal tunnel release (2014) History of cholecystectomy (~2006) History of eye surgery (1961) History of left knee surgery (1972) History of surgery (1999) History of thumb surgery (2014) History of verrucae (wart) excision (1974) Status post discectomy (1999) Status post knee surgery (2001) Status post laminectomy (1987) Family History Child Age: 39 Mentally disabled Low TSH level Encephalitis Father Age: 88 Pacemaker Heart disease Hypertension Mother Diabetes mellitus High cholesterol Brain tumor Sister Age: 67 Hypertension Sister Age: 62 Diabetes mellitus Heart disease Hypertension High cholesterol Brother Diabetes mellitus Brother Hypertension Social History household members: spouse and family Smoking Status: Former smoker Smoking Status: Former smoker Substance Use Type: does not use Exam Narrative Exam Narrative: GENERAL: [65] year old patient appears stated age. Well-developed patient, in mild distress. HEAD: Atraumatic. Normocephalic. EYES: Pupils equal round and reactive. Extraocular motions intact. No scleral icterus. No injection or drainage. ENT: Nose without bleeding, purulent drainage. Throat without erythema, tonsillar hypertrophy or exudate. Airway patent. NECK: Trachea midline. Non tender CARDIOVASCULAR: Regular rate and rhythm without murmurs, gallops, or rubs. RESPIRATORY: Clear to auscultation. Breath sounds equal bilaterally. No wheezes, rales, or rhonchi. GASTROINTESTINAL: Abdomen soft, non-tender, nondistended. EXTREMITIES: Pain and swelling of left ankle with ecchymosis inferior to medial malleolus, sensation and cap refill distal to the injury are intact. She also has pain at the lateral knee overlying the proximal fibula. BACK: Nontender without deformity or crepitance. No flank tenderness. NEURO: AOx3. SKIN: No rash or erythema of visible areas Initial Vital Signs Initial Vital Signs: Vital Signs Temperature 97.3 F L 08/08/20 13:08 Pulse Rate 89 08/08/20 13:08 Respiratory Rate 16 08/08/20 13:08 Blood Pressure 128/65 08/08/20 13:08 Pulse Oximetry 98 08/08/20 13:08 Procedures Orthopedic Splinting/Casting Injury #1: Side: left Lower Extremity Injury Location: ankle Lower Extremity Immobilizer: posterior splint Other Orthopedic Equipment: crutches Post splinting neuro exam: intact Post splinting vascular exam: intact Placed by: Nursing Course Orders Ordered: Discontinued Medications Ondansetron HCl (Ondansetron 4 Mg Odt) 4 mg SL NOW ONE Stop: 08/08/20 19:55 Last Admin: 08/08/20 20:03 Dose: 4 mg Documented by: XOCHITL Ondansetron HCl (Ondansetron 4 Mg Odt Prepack) 1 bottle MISC SEEINSTR ONE Stop: 08/08/20 20:25 Last Admin: 08/08/20 20:45 Dose: 1 bottle Documented by: XOCHITL Oxycodone/Acetaminophen (Oxycodone/Acetaminophen 5/325 Tablet) 1 tab PO NOW ONE Stop: 08/08/20 19:55 Last Admin: 08/08/20 20:03 Dose: 1 tab Documented by: XOCHITL Oxycodone/Acetaminophen (Oxycodone/Apap 5/325 Prepack) 1 bottle MISC SEEINSTR ONE Stop: 08/08/20 20:25 Last Admin: 08/08/20 20:45 Dose: 1 bottle Documented by: XOCHITL Consultations Consultation #1: Dr. Au has reviewed the imaging and recommends posterior mold with nonweightbearing Vital Signs Vital signs: Vital Signs - 8 hr 08/08/20 21:30 Pulse Rate 94 H Respiratory Rate 16 Blood Pressure 141/63 H Pulse Oximetry 94 MDM - Syncope Lab Data Result diagrams: 08/08/20 13:30 08/08/20 13:30 Labs: Lab Results 08/08/20 08/08/20 Range/Units 13:30 13:30 WBC 7.8 (4.5-11.0) X10^3/uL RBC 3.85 L (4.0-5.2) X10^6/uL Hgb 12.1 (12.0-16.0) g/dL Hct 36.3 (36-46) % MCV 94.3 (80-100) fL MCH 31.5 (26-34) PG MCHC 33.4 (30-36) % RDW 14.0 (11.6-14.8) % Plt Count 210 (150-400) X10^3/uL Neut % (Auto) 66.7 (50-75) % Lymph % (Auto) 21.0 L (25-40) % Ware % (Auto) 8.4 (3-14) % Eos % (Auto) 3.4 (2-4) % Baso % (Auto) 0.5 (0-2) % Neut # (Auto) 5200 (3095-2012) /uL Lymph # (Auto) 1700 (4815-2818) /uL Ware # (Auto) 700 (0-900) /uL Eos # (Auto) 300 (0-450) /uL Baso # (Auto) 0 (0-100) /uL Sodium 140 (137-145) mmol/L Potassium 4.1 (3.4-5.1) mmol/L Chloride 105 (98-107) mmol/L Carbon Dioxide 27 (22-32) mmol/L BUN 28 H (7-17) mg/dL Creatinine 1.35 H (0.52-1.04) mg/dL Estimated GFR 39.5 L (>60) mL/min BUN/Creatinine Ratio 20.7 (6-22) Glucose 205 H (80-110) mg/dL Calcium 10.5 H (8.4-10.2) mg/dL Total Bilirubin 0.7 (0.2-1.3) mg/dL AST 37 H (14-36) IU/L ALT 30 (<35) IU/L Alkaline Phosphatase 75 (38-126) U/L Total Creatine Kinase 122 (30-135) U/L CK-MB (CK-2) 0.92 (<2.37) ng/mL CK-MB (CK-2) Rel Index 0.8 L (1.5-5.0) % Troponin I < 0.012 (0.01-0.034) ng/mL Total Protein 7.6 (6.3-8.2) g/dL Albumin 4.3 (3.5-5.0) g/dL Globulin 3.3 (1.7-4.1) g/dL Albumin/Globulin Ratio 1.3 (1.0-2.8) Point of Care Testing Glucose POC 143 Imaging Data Extremity x-ray #1: Radiologist's Impression: [address] [id number] ReportSigned Patient: Meri Patino [facility]#: [id number]: 1955cct:[id number]/Sex: 65 / FDate of Service: 08/08/20Loc: EDAccession Number: [id number] Procedure: XR ankle LT min 3V Ordering Provider: Azeb Sanders D.O. PROCEDURE: XR ANKLE LT MIN 3V INDICATIONS: ankle injury TECHNIQUE: 3 views of the ankle were acquired. COMPARISON: None. FINDINGS: Bones: Acute oblique fracture through base of medial malleolus is seen with slight lateral displacement at fracture site. Ankle mortise is normally aligned. No suspicious bony lesions. Soft tissues: No tibiotalar joint effusion. Achilles tendon appears normal. IMPRESSION: Acute slightly displaced medial malleolus fracture as above. Dictated by: Momo Christine M.D. on 08/08/2020 at 14:30 Approved by: Momo Christine M.D. on 08/08/2020 at 14:31 [facility] Narrative Medical decision making narrative: 65-year-old female with a syncopal or near syncopal episode after getting up from bed and going to the bathroom early in the morning. She had been in her normal state of health prior to and continues to be in her normal state of health after the incident. Labs are very reassuring, EKG shows no significant findings. Her activities prior to syncope are reassuring. Return precautions given and questions answered to her apparent satisfaction. Other etiologies include but are not limited to cardiac disease, arrhythmia, electrolyte abnormality versus other Discharge Plan Departure Patient Disposition: Home Clinical Impression: Fracture of medial malleolus Qualifiers: Encounter type: initial encounter Fracture type: closed Fracture alignment: displaced Laterality: left Qualified Code(s): S82.52XA - Displaced fracture of medial malleolus of left tibia, initial encounter for closed fracture Fracture of fibula, proximal Qualifiers: Encounter type: initial encounter Fracture type: closed Fracture morphology: other fracture Laterality: left Qualified Code(s): S82.832A - Other fracture of upper and lower end of left fibula, initial encounter for closed fracture Instructions: DI for Ankle Fracture Activity Restrictions/Additional Instructions: *You have been diagnosed with [fall with left ankle and proximal fibula fracture] *What to do: *Please continue to take your regular medications as directed. [ x] New medication prescriptions sent to your pharmacy: [ [facility] ] [ ] New medication written as a paper prescription [ ] No new medications given * please follow-up with orthopedics, call Tuesday and let them know that you were seen in the emergency department and we want you seen in follow-up * no weight-bearing until follow-up *If you do not have a primary care provider please contact the [facility] Resource line at [phone]. They will ask some questions about your medical history and help get you set up with a doctor in the community. *Return to Emergency Department if you should have any new, worsening or concerning symptoms, such as [fever greater than 101 F, shaking chills, worsening pain, persistent vomiting or other bothersome symptoms] Splint Care: Keep splint clean and dry. Elevated affected body part to decrease swelling. OK to use ice pack on the affected body part. Use for 15-20 minutes each time, for 5-6x per day. If you develop worsening pain, numbness, tingling, discoloration of the affected body part, loosen the splint by loosening the GALEN wrap, and either see your doctor for an urgent re-assessment, or return to the Emergency Department. Return to the Emergency Department for any new or worsening symptoms. Prescriptions: New oxycodone 5 mg tablet 5 mg PO Q4-6H PRN (Reason: pain) Qty: 20 RF: 0 ondansetron 4 mg tablet,disintegrating 4 mg PO TID-QID PRN (Reason: nausea and vomiting) Qty: 10 RF: 0 No Action pantoprazole [Protonix] 40 mg tablet,delayed release (DR/EC) 40 mg PO DAILY RF: 0 (DME) FreeStyle Taylor 14 Day [place] Misc See Rx Instructions .ROUTE .MEDSUPPLY Qty: 1 RF: 0 bisoprolol fumarate 5 mg tablet 5 mg PO DAILY RF: 0 oxycodone-acetaminophen [Percocet] 5-325 mg tablet 1 tab PO Q6HP PRN (Reason: pain) Qty: 25 RF: 0 MULTIVITAMIN (Multivitamin -) 1 cap PO EVERY DAY Qty: 0 RF: 0 atorvastatin [Lipitor] 20 mg Tablet 20 mg PO HS Qty: 0 RF: 0 furosemide [Lasix] 20 mg tablet 20 mg PO PRN Qty: 90 RF: 3 potassium chloride 20 mEq tablet extended release 20 meq PO DAILY PRN (Reason: edema) Qty: 90 RF: 3 (DME) Blood Glucose Test strip See Dose Instructions .ROUTE .MEDSUPPLY Qty: 450 RF: 11 [pen needles] See Rx Instructions subcut 5XD Qty: 450 RF: 1 hydrochlorothiazide 25 mg tablet See Rx Instructions .ROUTE .COMPLEX Qty: 90 RF: 3 losartan [Cozaar] 25 mg tablet 25 mg PO Q DAY Qty: 90 RF: 3 Humalog U-100 Insulin 100 unit/mL cartridge See Rx Instructions SUBCUT QID Qty: 36 RF: 5 ondansetron HCl 4 mg tablet 4 mg PO Q6-8H PRN (Reason: nausea) Qty: 30 RF: 11 ibuprofen 800 mg tablet 800 mg PO Q8HP PRN (Reason: inflammation) Qty: 30 RF: 6 levothyroxine 137 mcg tablet 137 mcg PO DAILY Qty: 90 RF: 3 duloxetine 60 mg capsule,delayed release(DR/EC) 120 mg PO DAILY Qty: 180 RF: 1 Lantus Solostar U-100 Insulin 100 unit/mL (3 mL) insulin pen 60 unit SUBCUT BID Qty: 90 RF: 1 albuterol sulfate 90 mcg/actuation HFA aerosol inhaler 2 puff inhalation Q6H PRN (Reason: shortness of breath or wheezing) Qty: 6.7 RF: 1 montelukast 10 mg tablet See Rx Instructions .ROUTE .COMPLEX Qty: 90 RF: 3 cyclobenzaprine 10 mg tablet See Rx Instructions .ROUTE .COMPLEX Qty: 60 RF: 2 (DME) Respironics System One 60 series BIPAP Qty: 1 RF: 0 eszopiclone [Lunesta] 3 mg tablet 3 mg PO BEDTIME Qty: 30 RF: 0 Referrals: She Tate DO [Primary Care Provider] -
--- NOTE | 2020-08-08 19:35 | DI.RAD.S_ITS ---
PROCEDURE: XR KNEE LT 3V INDICATIONS: fall with ankle pain, knee pain TECHNIQUE: 3 views of the knee were acquired. COMPARISON: [facility], XR KNEE 2V BILATERAL, 12/12/2002, 10:45. FINDINGS: Bones: No fractures or dislocations. No suspicious bony lesions. Medial hemiarthroplasty is present. Hardware is intact without evidence of hardware fracture or periprosthetic loosening. There is an oblique fracture, minimally displaced within the fibular head extending to the proximal fibular shaft. Soft tissues: No joint effusion. No suspicious soft tissue calcifications. IMPRESSION: Minimally displaced fibular head fracture extending to the proximal fibular shaft. Dictated by: Yadira Carreno M.D. on 08/08/2020 at 20:37 Approved by: Yadira Carreno M.D. on 08/08/2020 at 20:38
[2020-08-08] MEDS: OXYCODONE/ACETAMINOPHEN 5/325 TABLET 1 TAB PO (20:03)
[2020-08-08] MEDS: ONDANSETRON 4 MG ODT SL (20:03)
[2020-08-08] MEDS: ONDANSETRON 4 MG ODT PREPACK 1 BOTTLE MISC (20:45)
[2020-08-08] MEDS: OXYCODONE/APAP 5/325 PREPACK 1 BOTTLE MISC (20:45)
[2020-08-08 20:59] VITALS: BP 126/60; PULSE 78; RESP 16; O2SAT 97
[2020-08-08 21:30] VITALS: BP 141/63; PULSE 94; RESP 16; O2SAT 94
== END 2020-08-08 22:01 | disposition home or self-care (01) ==
PROVIDERS: Emergency Medicine; Emergency Provider Emergency Medicine; Family Provider Internal Medicine Endocrinology, Diabetes & Metabolism; PCP Family Medicine
DX: S82.52XA Displaced fracture of medial malleolus of left tibia, initial encounter for closed fracture (principal); S82.832A Other fracture of upper and lower end of left fibula, initial encounter for closed fracture; R55 Syncope and collapse
CPT/HCPCS: 29515; 36415; 73562; 73610; 80053; 82550; 82553; 84484; 85025; 93005; 93010; 99284

== ENCOUNTER → 2020-08-14 10:20 | Outpatient (CLI) | payer OTHER, SELFPAY ==
[2020-08-14 11:15] LABS: COVID19 -Nasal RAPID Negative (Negative)
== END ==
PROVIDERS: Family Provider Internal Medicine Endocrinology, Diabetes & Metabolism; PCP Family Medicine; Referring Provider Physician Assistant; Visit Provider Physician Assistant
DX: Z20.822 Contact with and (suspected) exposure to COVID-19 (principal)
CPT/HCPCS: 87635

== ENCOUNTER 2020-08-15 10:14 | Day surgery (SDC) | payer OTHER, SELFPAY ==
[2020-08-14 08:17] VITALS: BMI 40.3
[2020-08-15] VITALS (10 sets, daily range): BP systolic 135–164; BP diastolic 66–82; PULSE 79–99; RESP 12–20; TEMP 36.5–36.6; O2SAT 94–100; BMI 40.3
[2020-08-15] MEDS: LACTATED RINGERS 1,000 ML 42 ML IV ×2 (11:47→14:29)
[2020-08-15] MEDS: FAMOTIDINE 20 MG/2 ML VIAL IV (12:26)
[2020-08-15] MEDS: METOCLOPRAMIDE 10 MG in SODIUM CHLORIDE 0.9% 50 ML 208 ML IV (12:32)
[2020-08-15] MEDS: ACETAMINOPHEN 325 MG TABLET 975 MG PO (13:02)
--- NOTE | 2020-08-15 13:20 | SUR.OPER ---
Supine on padded OR bed, head on pillow, arms secured on padded arm boards at <90 degrees abduction, legs uncrossed, safety belt at thigh, tape over blanket over nonoperative lower leg.
[2020-08-15] MEDS: CEFAZOLIN 1 GM VIAL 2 GM IV (14:05)
[2020-08-15] MEDS: BUPIVACAINE 0.5% (PF) VIAL 30 ML INJ (14:05)
--- NOTE | 2020-08-15 14:59 | PM.PREOP ---
Pre-operative Note COVID-19 COVID-19 status: Negative Result date/Date tested (Pos, Neg/Pending): 08/14/20 Interval Note History & Physical reviewed/Exam performed by Physician: Yes Changes to H&P: No
--- NOTE | 2020-08-15 15:10 | P.OP_ITS ---
Operative Date/Time/Diagnoses Date of procedure: 08/15/20 Time of procedure: 15:10 Pre-op diagnosis: Left ankle PER-4 fracture Post-op diagnosis: same Procedure & Clinicians Procedure: 1. Open reduction internal fixation of medial malleolus fracture, left ankle 2. Fixation of disruption of syndesmosis of left ankle Same procedure as scheduled: Yes Indications: The patient is a 65-year-old woman who suffered the above-noted ankle fracture earlier this week. She has agreed to fixation after discussion the risks benefits and alternatives. Risks discussed included but were not limited to: Failure to improve, stiffness, infection, nerve damage, deep venous thrombosis, pulmonary embolism, stroke, myocardial infarction, permanent paralysis, aspiration pneumonia and . Surgeon: Erick Au Click Yes if Unassisted: Yes Anesthesia Type: General and Local Operative Notes Findings: Satisfactory reduction of left ankle fracture. Closure Type: primary Prosthetic devices, grafts, tissues, transplants, or devices: Implants in this procedure included 2 40 mm partially-threaded cancellous Synthes bone screws 4.0 mm in diameter and 2 Arthrex syndesmosis Tightrope fixation devices with a 2 hole 1/3 tubular Synthes plate. Applied: implant(s) Estimated Blood Loss (mL): 5 Blood products transfused: none Tourniquet time (min): 42 Procedure in detail: The patient was seen in the preoperative area where she confirmed that the left ankle was her operative site and her toe on this side was marked with my initials. She received preoperative antibiotics was taken to the operating room placed in the operating room table in a supine position where she underwent the induction of a general anesthetic. A tourniquet was placed about the proximal left thigh and the left leg was prepared from the toes to the tourniquet after removing the splint. It the leg was draped through sterile drapes. A real time operator-out was performed before incision. The leg was elevated and exsanguinated with an Esmarch bandage, the tourniquet was inflated to 250 mmHg. An approximately 6 cm curvilinear incision was created over the medial malleolar fracture. This was carried by scissor dissection to the periosteum. Fracture was identified it was unexpectedly comminuted with a posterior fragment that was not obviously seen on radiographs. The fracture was reduced and held with a pointed reduction clamp. 240 mm length by 4.0 mm diameter partially- threaded screws were placed across the fracture to fix it. The position of the screws was verified as being satisfactory on fluoroscopy. We then turned our attention to treatment of the syndesmosis. The joint line was marked on the skin with a marking pen as was the upper edge of the contact between the tibia and the fibula. A 1 in incision was created over the fibula in the center of this area and a 2 hole 1/3 tubular plate was placed against the fibula to provide resistance to the fixation devices. Two holes were drilled slightly divergent through the plate 1 anterior 1 to posterior. Two Arthrex tight rope fixation devices were placed and were tightened down with the foot in neutral flexion. The sutures were then tied over the buttons to prevent them from loosening. The wounds were copiously irrigated. The position of all hardware and the reduction was confirmed on the mortise and lateral views of fluoroscopy. The subcutaneous tissues were closed with 3-0 Vicryl the skin with chelsea. A total of 15 mL 0.5% Marcaine was injected in the subcutaneous tissues for postoperative pain control. Dressings of Xeroform, sterile 4x4s, sterile cast padding and a stirrup type splint were applied. The tourniquet was deflated during dressing placement for total tourniquet time of 42 minutes. The patient was allowed to awaken from her anesthetic and was transferred to the recovery room in good condition having tolerated the procedure well. Complications: none Post-operative Condition: stable Disposition: PACU Plan for aftercare: The patient will be maintained nonweightbearing for 4 weeks and then will be allowed to weightbear in a removable boot. She will be discharged home later today. Her prescriptions have already been called into the pharmacy.
[2020-08-15] MEDS: OXYCODONE IR 5 MG TABLET PO ×2 (15:41→16:32)
[2020-08-15] MEDS: ONDANSETRON 4 MG/2 ML INJ IV (16:38)
--- NOTE | 2020-08-15 16:40 | SUR.PHASEII ---
Pt c/o increasing pain, Dhiraj spoke with Dr. Hutson ordered more oxycodone, pt medicated then vomited 300mls of yellow green liquid. Ondansetron given, IV fluids infusing and ice pack to back of neck.
--- NOTE | 2020-08-15 16:58 | SUR.PHASEII ---
Dr Au updated on current nausea, treatments received, and current pain level. OK to be discharged per Dr Au.
--- NOTE | 2020-08-15 17:13 | SUR.PHASEII ---
Dr Dixon updated. Will give compazine as ordered.
[2020-08-15] MEDS: PROCHLORPERAZINE 10 MG/2 ML VIAL IV (17:29)
--- NOTE | 2020-08-15 18:19 | SUR.PHASEII ---
Nausea slightly improved after compazine and finishing IVF. Pt wanting to go home.
== END 2020-08-15 18:08 | disposition home or self-care (01) ==
PROVIDERS: Family Provider Internal Medicine Endocrinology, Diabetes & Metabolism; PCP Family Medicine; Referring Provider Orthopaedic Surgery; Visit Provider Orthopaedic Surgery
PROC: (CPT 27766; principal; 2020-08-15 12:45)
DX: S82.52XA Displaced fracture of medial malleolus of left tibia, initial encounter for closed fracture (principal); S93.432A Sprain of tibiofibular ligament of left ankle, initial encounter; E11.22 Type 2 diabetes mellitus with diabetic chronic kidney disease; N18.9 Chronic kidney disease, unspecified; G47.33 Obstructive sleep apnea (adult) (pediatric); K21.9 Gastro-esophageal reflux disease without esophagitis; E66.9 Obesity, unspecified; E03.9 Hypothyroidism, unspecified; E11.40 Type 2 diabetes mellitus with diabetic neuropathy, unspecified; Z79.4 Long term (current) use of insulin; Z68.41 Body mass index [BMI] 40.0-44.9, adult; W18.39XA Other fall on same level, initial encounter
CPT/HCPCS: 27766; 27829; 82962; J0330; J0690; J0780; J1100; J1170; J2405; J2704; J2765; J3010

== ENCOUNTER → 2021-01-06 09:17 | Outpatient (CLI) | payer OTHER, SELFPAY ==
[2021-01-06 11:13] LABS: Alanine Aminotransferase 27 IU/L (<35); Albumin 4.3 g/dL (3.5-5.0); Albumin Globulin Ratio 1.5 (1.0-2.8); Alkaline Phosphatase 131 U/L (38-126); Aspartate Aminotransferase 37 IU/L (14-36); BUN Creatinine Ratio 16.7 (6-22); Bilirubin Total 0.4 mg/dL (0.2-1.3); Blood Urea Nitrogen 25 mg/dL (7-17); Calcium 10.4 mg/dL (8.4-10.2); Carbon Dioxide 25 mmol/L (22-32); Chloride 104 mmol/L (98-107); Globulin 2.8 g/dL (1.7-4.1); Glucose 335 mg/dL (80-110); HEMOLYSIS < 15 (0-50); Potassium 4.9 mmol/L (3.4-5.1); Sodium 139 mmol/L (137-145); Total Protein 7.1 g/dL (6.3-8.2)
[2021-01-06 11:18] LABS: Vitamin D 25 Hydroxy (D3) 52.3 ng/mL (30.0-100.0)
[2021-01-07 08:10] LABS: Parathyroid Hormone Int 54 pg/mL (15-65)
[2021-01-07 13:59] LABS: Free Kappa Lt Chains, Serum 33.2 mg/L (3.3-19.4); Free Lambda Lt Chains,Serum 20.2 mg/L (5.7-26.3)
[2021-01-09 15:47] LABS: Albumin 3.5 g/dL (2.9-4.4); Alpha-1-Globulin 0.2 g/dL (0.0-0.4); Alpha-2-Globulin 0.8 g/dL (0.4-1.0); Gamma Globulin 1.1 g/dL (0.4-1.8); Globulin Total 3.3 g/dL (2.2-3.9); Immunoglobulin A, Serum 138 mg/dL (87-352); Immunoglobulin G,Serum 954 mg/dL (586-1602); Immunoglobulin M, Serum 69 mg/dL (26-217); Protein, Total 6.8 g/dL (6.0-8.5)
[2021-01-15 16:16] LABS: 1,25-Dihydroxy, Vitamin D-2 <10 pg/mL (.)
== END ==
PROVIDERS: Family Provider Internal Medicine Endocrinology, Diabetes & Metabolism; PCP Family Medicine; Referring Provider Internal Medicine Nephrology; Visit Provider Internal Medicine Nephrology
DX: E83.52 Hypercalcemia (principal); N18.32 Chronic kidney disease, stage 3b
CPT/HCPCS: 36415; 80053; 82306; 82652; 82784; 83883; 83970; 84155; 84165; 86334

== ENCOUNTER → 2021-02-10 13:35 | Outpatient (CLI) | payer OTHER, SELFPAY ==
--- NOTE | 2021-02-10 13:37 | DI.CT.S_ITS ---
PROCEDURE: CT LE LT W CON INDICATIONS: EVAL MEDIAL MAL HEALING TECHNIQUE: Noncontrast 1-1.5 mm axial sections acquired from above the tibiotalar joint to the bottom of the calcaneus, with coronal and sagittal reformats. COMPARISON: [facility] [place], CR, XR ANKLE 3+ VIEWS LEFT, 08/28/2020, 14:01. FINDINGS: Image quality: Excellent. Bones: No acute, displaced fracture. Remote trimalleolar fracture deformities with hardware demonstrating no evidence of compromise. No remaining fracture line is appreciated. The talar dome is maintained. Degenerative changes of the hallux sesamoids. Joint space loss with minimal osteophytosis of the 1st metatarsophalangeal joint. Soft tissues: Small tibiotalar joint effusion. IMPRESSION: Healed fracture deformity of the ankle as detailed above. Dictated by: Jeferson Rivero M.D. on 02/10/2021 at 14:18 Approved by: Jeferson Rivero M.D. on 02/10/2021 at 14:28
== END ==
PROVIDERS: Family Provider Internal Medicine Endocrinology, Diabetes & Metabolism; PCP Family Medicine; Referring Provider Orthopaedic Surgery Foot and Ankle Surgery; Visit Provider Orthopaedic Surgery Foot and Ankle Surgery
DX: S93.432A Sprain of tibiofibular ligament of left ankle, initial encounter (principal); Z87.81 Personal history of (healed) traumatic fracture
CPT/HCPCS: 73700

== ENCOUNTER → 2021-02-23 13:12 | Outpatient (CLI) | payer OTHER, SELFPAY ==
[2021-02-23 13:50] LABS: Hemoglobin A1C% w Est Avg Glu 9.9 % (4.0-6.0)
== END ==
PROVIDERS: Family Provider Internal Medicine Endocrinology, Diabetes & Metabolism; PCP Family Medicine; Referring Provider Orthopaedic Surgery Foot and Ankle Surgery; Visit Provider Orthopaedic Surgery Foot and Ankle Surgery
DX: R73.9 Hyperglycemia, unspecified (principal)
CPT/HCPCS: 36415; 80053; 83036

== ENCOUNTER → 2021-06-02 09:54 | Outpatient (CLI) | payer OTHER, SELFPAY ==
[2021-06-02 11:11] LABS: Hemoglobin A1C% w Est Avg Glu 8.8 % (4.0-6.0)
== END ==
PROVIDERS: Family Provider Internal Medicine Endocrinology, Diabetes & Metabolism; PCP Family Medicine; Referring Provider Family Medicine; Visit Provider Family Medicine
DX: E11.65 Type 2 diabetes mellitus with hyperglycemia (principal)
CPT/HCPCS: 36415; 83036

== ENCOUNTER → 2021-08-13 08:02 | Outpatient (CLI) | payer OTHER, SELFPAY ==
--- NOTE | 2021-08-13 08:06 | DI.RAD.S_ITS ---
PROCEDURE: XR CHEST 2V INDICATIONS: Pre operative testing - hx of sleep apnea TECHNIQUE: 2 views of the chest were acquired. COMPARISON: [facility], CR, XR CHEST 2V, 06/17/2020, 14:48. FINDINGS: Surgical changes and devices: None. Lungs and pleura: Lungs are clear. No pleural effusions or pneumothorax. Mediastinum: Mediastinal contours are normal. Heart size is normal. Bones and chest wall: No suspicious bony abnormalities. Soft tissues appear unremarkable. IMPRESSION: No acute cardiopulmonary disease. Dictated by: Reyna Francis M.D. on 08/13/2021 at 17:35 Approved by: Reyna Francis M.D. on 08/13/2021 at 17:37
--- NOTE | 2021-08-13 08:06 | DI.MG.S_ITS ---
BILATERAL DIGITAL SCREENING MAMMOGRAM 3D/2D WITH CAD: 08/13/2021 CLINICAL: Routine screening. Family history of breast cancer. Comparison is made to exams dated: 09/30/2018 mammogram, 08/12/2016 mammogram, and 09/22/2012 mammogram - [facility]. There are scattered fibroglandular elements in both breasts. Current study was also evaluated with a Computer Aided Detection (CAD) system. No significant masses, calcifications, or other findings are seen in either breast. There has been no significant interval change. IMPRESSION: NEGATIVE There is no mammographic evidence of malignancy. A 1 year screening mammogram is recommended. Based on the Tyrer Cuzick model (a risk assessment model) the patient's lifetime risk is 4.5% and her 10 year risk is 2.1%. According to the ACR, ACS, and NCCN guidelines, an annual breast MRI exam along with mammogram is recommended if the patient's lifetime risk is 20% or greater. This exam was interpreted at Station ID: [id number]. NOTE: For mammograms, a report in lay terms will be sent to the patient. Approximately 15% of breast malignancies will not be visualized mammographically. In the management of a palpable breast mass, a negative mammogram must not discourage biopsy of a clinically suspicious lesion. Electronically Signed By: Denis porter/bravo:08/13/2021 09:22:04 letter sent: Normal Exam ACR BI-RADS Category 1: Negative 3341F
[2021-08-13 09:19] LABS: Add Manual Diff / Slide Review NO; Basophils Absolute Auto 0 /uL (0-100); Basophils Percent Auto 0.6 % (0-2); Eosinophils Absolute Auto 200 /uL (0-450); Hematocrit 35.5 % (36-46); Lymphocytes Absolute Auto 1400 /uL (1100-4500); Lymphocytes Percent Auto 26.2 % (25-40); Mean Corpuscular HGB Conc 33.8 % (30-36); Mean Corpuscular Hemoglobin 31.8 PG (26-34); Mean Corpuscular Volume 94.2 fL (80-100); Monocytes Absolute Auto 500 /uL (0-900); Monocytes Percent Auto 9.4 % (3-14); Neutrophils Absolute Auto 3300 /uL (1500-7000); Neutrophils Percent Auto 59.8 % (50-75); Platelet Count 208 X10^3/uL (150-400); Red Blood Cell Count 3.77 X10^6/uL (4.0-5.2); Red Cell Distribution Width 13.9 % (11.6-14.8); White Blood Cell Count 5.5 X10^3/uL (4.5-11.0)
[2021-08-13 09:28] LABS: Alanine Aminotransferase 25 IU/L (<35); Albumin 4.5 g/dL (3.5-5.0); Albumin Globulin Ratio 1.7 (1.0-2.8); Alkaline Phosphatase 119 U/L (38-126); Aspartate Aminotransferase 33 IU/L (14-36); BUN Creatinine Ratio 18.5 (6-22); Bilirubin Total 0.4 mg/dL (0.2-1.3); Blood Urea Nitrogen 27 mg/dL (7-17); Carbon Dioxide 26 mmol/L (22-32); Chloride 106 mmol/L (98-107); Cholesterol 143 mg/dL (140-199); Estimated Glomerular Filt Rate 40 mL/min (>60); Globulin 2.6 g/dL (1.7-4.1); Glucose 317 mg/dL (80-110); HDL Cholesterol 43 mg/dL (40-60); HEMOLYSIS < 15 (0-50); LDL Cholesterol Calculated 51 mg/dL (<100); Potassium 4.5 mmol/L (3.4-5.1); Sodium 140 mmol/L (137-145); Total Protein 7.1 g/dL (6.3-8.2); Triglycerides 247 mg/dL (35-150)
[2021-08-13 09:31] LABS: Hemoglobin A1C% w Est Avg Glu 8.3 % (4.0-6.0)
[2021-08-13 09:58] LABS: TSH w/ Reflex to FT4 7.24 uIU/mL (0.47-4.68)
[2021-08-13 10:20] LABS: Vitamin B12 371 pg/mL (239-931)
== END ==
PROVIDERS: Physician Assistant; Family Provider Internal Medicine Endocrinology, Diabetes & Metabolism; PCP Family Medicine; Referring Provider Family Medicine; Visit Provider Family Medicine
DX: Z01.818 Encounter for other preprocedural examination (principal); Z12.31 Encounter for screening mammogram for malignant neoplasm of breast; Z80.3 Family history of malignant neoplasm of breast; E11.22 Type 2 diabetes mellitus with diabetic chronic kidney disease; I12.9 Hypertensive chronic kidney disease with stage 1 through stage 4 chronic kidney disease, or unspecified chronic kidney disease; N18.9 Chronic kidney disease, unspecified; E11.65 Type 2 diabetes mellitus with hyperglycemia; E03.9 Hypothyroidism, unspecified; E53.8 Deficiency of other specified B group vitamins
CPT/HCPCS: 36415; 71046; 77063; 77067; 80053; 80061; 82607; 83036; 84439; 84443; 85025

== ENCOUNTER → 2021-11-16 10:54 | Outpatient (CLI) | payer OTHER, SELFPAY ==
[2021-11-16 12:10] LABS: COVID19 -Nasal RAPID Negative (Negative)
--- NOTE | 2021-11-16 14:22 | DI.ECHO.S_ITS ---
Interpretation Summary The left ventricle is normal in size. The ejection fraction is estimated to be 60-65%. There has been no significant change in LVEF since the previous exam. The right ventricle is normal size. Visually RV function is preserved. No significant valvular pathology seen. Procedure: A two-dimensional transthoracic echocardiogram with color flow and Doppler was performed. The study quality was technically adequate. Comparison is made with the echocardiogram of 08/01/2017. The subcostal views were difficult to obtain and are suboptimal in quality. The patient was in sinus rhythm with heart rates between 76-80 bpm during the exam. Left Ventricle: The left ventricle is normal in size. Proximal septal thickening is noted. There is no echo evidence for significant left ventricular outflow tract obstruction. There is no thrombus. The ejection fraction is estimated to be 60-65%. There has been no significant change since the previous exam. There are no focal wall motion abnormalities. Diastolic parameters suggest a relaxation abnormality of the left ventricle, consistent with probable normal filling pressures. Right Ventricle: The right ventricle is normal size. Visually RV function is preserved. Atria: The left atrial size is normal. Both atria have remained unchanged in size since the prior echo exam. Right atrial size is normal. There is no Doppler evidence for an interatrial shunt. Mitral Valve: There is mild mitral annular calcification. There is trace mitral regurgitation. Aortic Valve: The aortic valve is slightly calcified. The aortic valve is trileaflet. The aortic valve is not well visualized. There is no aortic valve stenosis. There is trace aortic regurgitation. Tricuspid Valve: The tricuspid valve is not well visualized, but is grossly normal. There is trace tricuspid regurgitation. Pulmonary artery pressures cannot be estimated because of the lack of a measurable TR jet velocity. Pulmonic Valve: The pulmonic valve is not well visualized. There is no pulmonic valvular regurgitation. Great Vessels: The aortic root is normal size. The dimensions of the ascending aorta are normal. The inferior vena cava was not visualized. Pericardium/ Pleura There is no pericardial effusion. There is an anterior echo-free space consistent with a fat pad. There is no pleural effusion. MMode/2D Measurements & Calculations LVIDd: 4.6 cm LVOT diam: 2.4 cm LVIDs: 3.4 cm Ao root diam: 3.7 cm FS: 25.9 % asc Aorta Diam: 3.3 cm IVSd: 0.80 cm Ao Arch Diam (Prox Trans): 2.9 cm LVPWd: 0.96 cm LV lemon. diameter/BSA (cm/m^2): 2.0 LV sys. diameter/BSA (cm/m^2): 1.5 LA A2 area: 20.0 cm2 RA long axis: 4.5 cm LA A4 area: 14.7 cm2 RA area: 10.8 cm2 LA length (vol): 4.6 cm RA vol: 22.0 ml LA vol: 54.8 ml RA : 9.6 ml/m2 LA vol index: 24.0 ml/m2 RVD1 (basal): 3.2 cm RVD2 (mid): 2.4 cm TAPSE: 1.6 cm Doppler Measurements & Calculations Ao V2 max: 124.6 cm/sec LVOT Max Ernst: 98.9 cm/sec Ao V2 mean: 84.8 cm/sec LV V1 max P.9 mmHg Ao max P.2 mmHg LV V1 VTI: 20.0 cm Ao mean P.3 mmHg TODD(I,D): 3.6 cm2 Ao V2 VTI: 24.9 cm TODD(V,D): 3.6 cm2 sev ratio: 0.80 TODD indexed to BSA (cm^2/m^2): 1.6 MV E max ernst: 54.6 cm/sec PA V2 max: 105.5 cm/sec MV A max ernst: 84.9 cm/sec PA V2 mean: 71.2 cm/sec MV E/A: 0.64 PA mean P.3 mmHg Med Peak E' Ernst: 5.5 cm/sec PA pr(Accel): 36.2 mmHg E/E' med: 9.9 Lat Peak E' Ernst: 6.1 cm/sec E/E' lat: 8.9 E/e' average: 9.4 MV dec time: 0.26 sec SV(LVOT): 90.3 ml Reading Physician:12:53 PM
--- NOTE | 2021-11-17 17:49 | DI.NM.S_ITS ---
DATE OF SERVICE: 11/16/2021 PROCEDURE: Pharmacological perfusion study. INDICATION: History of syncope, PVCs, nonsustained ventricular tachycardia, insulin-dependent diabetes mellitus, hypertension and hyperlipidemia. RADIOPHARMACEUTICAL: 25.9 millicurie technetium-99m Myoview IV was injected at stress and 24.6 millicurie technetium-99m Myoview IV was injected at rest. CARDIAC STRESS: The patient underwent IV Lexiscan perfusion study under the supervision of an attending staff. The patient received IV Lexiscan, as per protocol. Baseline rhythm was sinus. During stress, there were no convincing ischemic changes seen. No significant arrhythmias seen. The patient has headache, but no chest pain. Remained hemodynamically stable. Baseline blood pressure 118/68 mmHg. Baseline rhythm was sinus. RAW DATA: Breast shadow was seen. GATED STUDY: Stress LV ejection fraction 70 percent without any obvious wall motion abnormalities. Resting end-diastolic volume 80 mL. TID ratio 1.25, which is a pharmacological perfusion study. On my visual inspection, no significant transient ischemic dilatation. Lung/heart ratio 0.29, which is within normal limits. MYOCARDIAL PERFUSION SCAN: Stress supine, resting supine and stress prone images were compared to each other. Stress supine images revealed small size, mildly decreased perfusion of mid to distal anterior wall, which got resolved during stress prone images, suggestive of breast tissue attenuation artifact. Stress prone images revealed normal myocardial perfusion. CONCLUSION: This is a normal myocardial perfusion study with evidence of breast tissue attenuation artifact, which got resolved during stress prone images. Summed stress score and summed rest score is 0. Left ventricular function is preserved. Overall, low-risk myocardial perfusion scan. Meri Patino - Joselito/hawa doc#: [id number]/job#: [id number] dd: 11/17/2021 16:55:00 dt: 11/17/2021 17:26:00 DICTATING MD/COPIES TO: Travis Oliver MD COPIES MNE: JOSÉ ANTONIO;
== END ==
PROVIDERS: Family Provider Internal Medicine Endocrinology, Diabetes & Metabolism; PCP Family Medicine; Referring Provider Internal Medicine Cardiovascular Disease; Visit Provider Internal Medicine Cardiovascular Disease
DX: I49.3 Ventricular premature depolarization (principal); R55 Syncope and collapse; E11.9 Type 2 diabetes mellitus without complications; I10 Essential (primary) hypertension; E78.5 Hyperlipidemia, unspecified; Z79.4 Long term (current) use of insulin; Z20.822 Contact with and (suspected) exposure to COVID-19
CPT/HCPCS: 78452; 87635; 93017; 93306; A9502; J2785

== ENCOUNTER → 2021-12-14 09:30 | Outpatient (CLI) | payer OTHER, SELFPAY ==
[2021-12-14 11:23] LABS: Magnesium 1.9 mg/dL (1.6-2.3)
== END ==
PROVIDERS: Family Provider Internal Medicine Endocrinology, Diabetes & Metabolism; PCP Family Medicine; Referring Provider Internal Medicine Cardiovascular Disease; Visit Provider Internal Medicine Cardiovascular Disease
DX: I49.3 Ventricular premature depolarization (principal)
CPT/HCPCS: 36415; 83735; 84443

== ENCOUNTER → 2022-02-19 11:53 | Outpatient (CLI) | payer OTHER, SELFPAY ==
[2022-02-19 13:58] LABS: Thyroid Stimulating Hormone 5.37 uIU/mL (0.47-4.68)
== END ==
PROVIDERS: Family Provider Internal Medicine Endocrinology, Diabetes & Metabolism; PCP Family Medicine; Referring Provider Family Medicine; Visit Provider Family Medicine
DX: E03.9 Hypothyroidism, unspecified (principal)
CPT/HCPCS: 36415; 84443

== ENCOUNTER → 2022-03-30 10:18 | Outpatient (CLI) | payer OTHER, SELFPAY ==
[2022-03-30 10:43] LABS: Add Manual Diff / Slide Review NO; Basophils Absolute Auto 0 /uL (0-100); Basophils Percent Auto 0.5 % (0-2); Eosinophils Absolute Auto 200 /uL (0-450); Hematocrit 35.7 % (36-46); Lymphocytes Absolute Auto 1600 /uL (1100-4500); Lymphocytes Percent Auto 28.7 % (25-40); Mean Corpuscular HGB Conc 33.5 % (30-36); Mean Corpuscular Hemoglobin 31.8 PG (26-34); Mean Corpuscular Volume 94.8 fL (80-100); Monocytes Absolute Auto 500 /uL (0-900); Monocytes Percent Auto 8.5 % (3-14); Neutrophils Absolute Auto 3300 /uL (1500-7000); Neutrophils Percent Auto 58.3 % (50-75); Platelet Count 199 X10^3/uL (150-400); Red Blood Cell Count 3.77 X10^6/uL (4.0-5.2); Red Cell Distribution Width 14.1 % (11.6-14.8); White Blood Cell Count 5.6 X10^3/uL (4.5-11.0)
[2022-03-30 11:06] LABS: BUN Creatinine Ratio 17.3 (6-22); Blood Urea Nitrogen 23 mg/dL (7-17); Calcium 9.6 mg/dL (8.4-10.2); Carbon Dioxide 24 mmol/L (22-32); Chloride 105 mmol/L (98-107); Estimated Glomerular Filt Rate 44 mL/min (>60); Glucose 376 mg/dL (80-110); HEMOLYSIS < 15 (0-50); Potassium 4.8 mmol/L (3.4-5.1); Sodium 138 mmol/L (137-145)
[2022-03-30 11:24] LABS: Prolactin 10.4 ng/mL (3.0-18.6)
[2022-03-30 11:39] LABS: TSH w/ Reflex to FT4 5.18 uIU/mL (0.47-4.68)
[2022-03-30 12:04] LABS: Free T4, Direct Thyroxine 1.12 ng/dL (0.78-2.19)
[2022-04-02 10:36] LABS: Adrenocorticotropic Hormone 19.1 pg/mL (7.2-63.3)
[2022-04-02 13:10] LABS: IGF-1 98 ng/mL (57-202)
== END ==
PROVIDERS: Family Provider Internal Medicine Endocrinology, Diabetes & Metabolism; PCP Family Medicine; Referring Provider Physician Assistant; Visit Provider Physician Assistant
DX: N64.4 Mastodynia (principal); N64.52 Nipple discharge
CPT/HCPCS: 36415; 80048; 82024; 84146; 84305; 84439; 84443; 85025

== ENCOUNTER → 2022-04-13 11:52 | Outpatient (CLI) | payer OTHER, SELFPAY ==
--- NOTE | 2022-04-13 11:53 | DI.MG.S_ITS ---
BILATERAL DIGITAL DIAGNOSTIC MAMMOGRAM 3D/2D: 04/13/2022 Comparison is made to exams dated: 08/13/2021 mammogram, 09/30/2018 mammogram, and 08/12/2016 mammogram - [facility]. There are scattered areas of fibroglandular density in both breasts (category b / 25%-50% glandular tissue). No significant masses, calcifications, or other findings are seen in either breast. There has been no significant interval change. IMPRESSION: NEGATIVE There is no mammographic evidence of malignancy. A 1 year screening mammogram is recommended. Future imaging is recommended as follows: 08/14/2022 screening mammogram. Based on the Tyrer Cuzick model (a risk assessment model) the patient's lifetime risk is 4.5% and her 10 year risk is 2.1%. According to the ACR, ACS, and NCCN guidelines, an annual breast MRI exam along with mammogram is recommended if the patient's lifetime risk is 20% or greater. This exam was interpreted at Station ID: [id number]. NOTE: For mammograms, a report in lay terms will be sent to the patient. Approximately 15% of breast malignancies will not be visualized mammographically. In the management of a palpable breast mass, a negative mammogram must not discourage biopsy of a clinically suspicious lesion. Electronically Signed By: Jefe Davis M.D., jr/bravo:04/13/2022 12:32:56 letter sent: Normal Exam ACR BI-RADS Category 1: Negative 3341F
== END ==
PROVIDERS: Family Provider Internal Medicine Endocrinology, Diabetes & Metabolism; PCP Family Medicine; Referring Provider Physician Assistant; Visit Provider Physician Assistant
DX: N64.52 Nipple discharge (principal); N64.4 Mastodynia
CPT/HCPCS: 77066; G0279

== ENCOUNTER → 2022-06-02 08:58 | Outpatient (CLI) | payer OTHER, SELFPAY ==
--- NOTE | 2022-06-02 09:00 | DI.RAD.S_ITS ---
PROCEDURE: XR SACRUM COCCYX MIN 2V INDICATIONS: tailbone pain post-fall TECHNIQUE: 3 views of the sacrum and coccyx acquired. COMPARISON: None. FINDINGS: Bones: No fractures or dislocations. No suspicious bony lesions. Soft tissues: Visualized bowel gas pattern is normal. No suspicious soft tissue densities. IMPRESSION: No displaced fracture. Dictated by: Deangelo De Oliveira M.D. on 06/02/2022 at 11:40 Approved by: Deangelo De Oliveira M.D. on 06/02/2022 at 11:41
== END ==
PROVIDERS: Family Provider Internal Medicine Endocrinology, Diabetes & Metabolism; PCP Family Medicine; Referring Provider Family Medicine; Visit Provider Family Medicine
DX: M53.3 Sacrococcygeal disorders, not elsewhere classified (principal)
CPT/HCPCS: 72220

== ENCOUNTER 2022-08-21 16:51 | Emergency (ER) | payer OTHER, SELFPAY ==
[2022-08-21] VITALS (12 sets, daily range): BP systolic 112–140; BP diastolic 58–77; PULSE 91–107; RESP 18; TEMP 37.3–37.6; O2SAT 95–97; BMI 41.0
[2022-08-21] MEDS: SODIUM CHLORIDE 0.9% 1,000 ML 1000 ML IV ×2 (17:12→18:21)
[2022-08-21 17:26] LABS: Add Manual Diff / Slide Review NO; Basophils Absolute Auto 100 /uL (0-100); Basophils Percent Auto 0.5 % (0-2); Eosinophils Absolute Auto 100 /uL (0-450); Hemoglobin 12.7 g/dL (12.0-16.0); Lymphocytes Absolute Auto 1100 /uL (1100-4500); Lymphocytes Percent Auto 9.2 % (25-40); Mean Corpuscular HGB Conc 33.3 % (30-36); Mean Corpuscular Hemoglobin 30.9 PG (26-34); Mean Corpuscular Volume 92.7 fL (80-100); Monocytes Absolute Auto 500 /uL (0-900); Monocytes Percent Auto 4.7 % (3-14); Neutrophils Absolute Auto 9700 /uL (1500-7000); Neutrophils Percent Auto 84.6 % (50-75); Platelet Count 262 X10^3/uL (150-400); Red Cell Distribution Width 13.8 % (11.6-14.8); White Blood Cell Count 11.4 X10^3/uL (4.5-11.0)
--- NOTE | 2022-08-21 17:29 | ED_ITS ---
HPI - Abdominal Pain <Maria L Cardoso, - Last Filed: 08/21/22 19:09> General Chief Complaint: Abdominal Pain Stated Complaint: D/Burping/ T-5 ACHY IN GUT, HEADACH Time Seen by Provider: 08/21/22 17:10 Source: patient Mode of arrival: Ambulatory History of Present Illness HPI narrative: Patient 67 year female history of diabetes, hyperlipidemia presenting today with 5 days of diarrhea. She reports that she has multiple episodes frequently she can not even tell when she is having a bowel movement. It is all liquid nonbloody. She is trying to stay hydrated but feels like it goes right through her. She still feels generally weak no fever or chills. She is having some abdominal cramping. No nausea or vomiting. She denies any recent travel or antibiotics. No one else at home is sick. She is not passed out denies any chest pain or palpitations. Related Data Home Medications Medication Instructions Recorded Confirmed multivitamin 1 cap PO DAILY ##0 02/17/08 03/25/22 atorvastatin 20 mg tablet (Lipitor) 20 mg PO HS ##0 12/26/15 03/25/22 RespirVelostacks System One 60 series #1 ea 09/29/18 03/25/22 BIPAP bisoprolol fumarate 5 mg tablet 5 mg PO DAILY 12/07/18 03/25/22 Previous Rx's Medication Instructions Recorded [pen needles] See Rx Instructions SUBCUT 5XD 10/26/18 #450 units losartan 25 mg tablet (Cozaar) 25 mg PO Q DAY #90 mg 01/12/19 eszopiclone 3 mg tablet (Lunesta) 3 mg PO BEDTIME Use sparingly #30 09/28/19 tabs fluconazole 150 mg tablet 150 mg PO DAILY #2 tabs 11/05/21 blood sugar diagnostic (Blood #450 ea 12/10/21 Glucose Test strips) duloxetine 60 mg capsule,delayed See Rx Instructions .Route 01/05/22 release .COMPLEX #180 caps levothyroxine 137 mcg tablet 137 mcg PO DAILY #90 tabs 01/05/22 insulin glargine 100 unit/mL (3 See Rx Instructions .Route 01/11/22 mL) subcutaneous pen .COMPLEX #45 mL insulin lispro 100 unit/mL See Rx Instructions .Route 01/11/22 subcutaneous pen .COMPLEX #30 mL cyclobenzaprine 10 mg tablet See Rx Instructions .Route 01/26/22 .COMPLEX #180 tabs mupirocin 2 % topical ointment 1 applic topical TID #15 grams 03/05/22 pantoprazole 40 mg tablet,delayed See Rx Instructions .Route 03/15/22 release .COMPLEX #90 tabs montelukast 10 mg tablet See Rx Instructions .Route 03/18/22 .COMPLEX #90 tabs albuterol sulfate 90 mcg/actuation See Rx Instructions .Route 05/17/22 aerosol inhaler .COMPLEX #6.7 grams ondansetron 4 mg disintegrating See Rx Instructions .Route 05/17/22 tablet .COMPLEX #10 tabs ibuprofen 800 mg tablet 800 mg PO Q8HP PRN inflammation 06/01/22 #30 tabs oxycodone-acetaminophen 5 mg-325 1 tab PO Q6HP PRN pain #25 tabs 06/07/22 mg tablet (Percocet) ondansetron 4 mg disintegrating 4 mg PO Q8H PRN nausea and 08/21/22 tablet vomiting #10 tabs Allergies Allergy/AdvReac Type Severity Reaction Status Date / Time nickel Allergy Mild Verified 08/21/22 17:05 clindamycin [CLINDAMYCIN] Allergy Unknown Verified 08/21/22 17:05 codeine [CODEINE] Allergy Unknown Verified 08/21/22 17:05 hydrocodone [HYDROCODONE] Allergy Unknown Verified 08/21/22 17:05 meperidine [MEPERIDINE] Allergy Unknown Verified 08/21/22 17:05 methadone [METHADONE] Allergy Unknown Verified 08/21/22 17:05 prednisone [PREDNISONE] Allergy Unknown hives Verified 08/21/22 17:05 Sulfa (Sulfonamide Allergy Unknown Verified 08/21/22 17:05 Antibiotics) [SULFA (SULFONAMIDE ANTIBIOTICS)] cow Allergy Unknown Uncoded 06/01/22 13:26 Review of Systems <Maria L Cardoso DO - Last Filed: 08/21/22 19:09> Review of Systems ROS Unobtainable: All systems reviewed & are unremarkable except as noted in HPI and below Patient History <Maria L Cardoso DO - Last Filed: 08/21/22 19:09> Medical History Anemia Asthma Ugalde's esophagus (2012) Cardiac arrhythmia Chicken pox (1969) Chronic back pain (~1987) Chronic cough Chronic headaches (~1985) Chronic kidney disease Chronic prescription opiate use CTS (carpal tunnel syndrome) (2015) Diabetes mellitus (1977) Diabetic neuropathy Essential hypertension (01/30/03) Foot fracture, left (1989) Frequent UTI Gastroparesis GERD (gastroesophageal reflux disease) Hayfever Hemorrhoids Hypothyroidism (1999) Left knee pain (~2001) Measles (1963) Meniere's disease, unspecified (01/18/02) Morbid obesity with BMI of 40.0-44.9, adult Mumps (~1969) Neuropathic pain of foot (~1987) Obstructive sleep apnea Osteoarthritis (2013) Peripheral neuropathy Plantar warts (~1972) Recurrent sinusitis (~1976) Sleep apnea Toe fracture, left (2013) Type 2 diabetes mellitus (10/08/03) Ventricular tachycardia Vertigo Surgical History Anesthesia History of carpal tunnel release (2014) History of cholecystectomy (~2005) History of eye surgery (1961) History of left knee surgery (1972) History of surgery (1999) History of thumb surgery (2014) History of verrucae (wart) excision (1974) Status post discectomy (1999) Status post knee surgery (2001) Status post laminectomy (1987) Family History Child Age: 41 Mentally disabled Low TSH level Encephalitis Father Age: 90 Pacemaker Heart disease Hypertension Mother Diabetes mellitus High cholesterol Brain tumor Sister Age: 69 Hypertension Sister Age: 64 Diabetes mellitus Heart disease Hypertension High cholesterol Brother Diabetes mellitus Brother Hypertension Social History household members: spouse and family Smoking Status: Former smoker Smoking Status: Former smoker alcohol intake frequency: holidays/special occasions only Substance Use Type: does not use Exam <Maria L Cardoso DO - Last Filed: 08/21/22 19:09> Initial Vital Signs Initial Vital Signs: Vital Signs Temperature 99.7 F H 08/21/22 17:02 Pulse Rate 107 H 08/21/22 17:02 Respiratory Rate 18 08/21/22 17:02 Blood Pressure 140/68 08/21/22 17:02 Pulse Oximetry 95 08/21/22 17:02 Oxygen Delivery Method Room Air 08/21/22 17:02 GENERAL: Alert 67-year-old female appears to not feel well HEENT: Head atraumatic,EOMI, pupils reactive, face symmetric, dry mucous membranes CARDIOVASCULAR: Regular rate and rhythm without murmurs, rubs or gallops. RESPIRATORY: Breath sounds equal bilaterally, no wheezes rales or rhonchi. ABDOMEN: Soft, nontender. Normoactive bowel sounds all 4 quadrants. No guarding or rebound. EXTREMITIES: Normal range of motion, no clubbing or edema. Neurovascularly intact NEUROLOGICAL: Alert and oriented x4.Normal gait and speech. Cranial nerves II through XII grossly intact. SKIN: Warm, dry, no laceration, no petechiae, no rashes or lesions. <Arya Medina DO - Last Filed: 08/21/22 20:29> Initial Vital Signs Initial Vital Signs: Vital Signs Temperature 99.7 F H 08/21/22 17:02 Pulse Rate 107 H 08/21/22 17:02 Respiratory Rate 18 08/21/22 17:02 Blood Pressure 140/68 08/21/22 17:02 Pulse Oximetry 95 08/21/22 17:02 Oxygen Delivery Method Room Air 08/21/22 17:02 Course <Maria L Cardoso, DO - Last Filed: 08/21/22 19:09> Orders Ordered: ED Orders 08/21/22 17:05 EKG-12 Lead Stat 08/21/22 17:10 Complete Blood Count AUTO DIFF Stat Comprehensive Metabolic Panel Stat Lactate (Lactic Acid) Stat Lipase Stat Procalcitonin Stat 08/21/22 17:26 GI Panel (Film Array) Stat Discontinued Medications Sodium Chloride (Normal Saline 0.9%) 1,000 mls @ 1,000 mls/hr IV BOLUS ONE Stop: 08/21/22 18:09 Last Infusion: 08/21/22 18:03 Dose: 0 mls/hr Documented By: Admin: 08/21/22 17:12 Dose: 1,000 mls/hr Documented By: RB Sodium Chloride (Normal Saline 0.9%) 1,000 mls @ 1,000 mls/hr IV BOLUS ONE Stop: 08/21/22 19:17 Last Infusion: 08/21/22 19:17 Dose: 0 mls/hr Documented By: Admin: 08/21/22 18:21 Dose: 1,000 mls/hr Documented By: GRAZYNA Ondansetron HCl (Ondansetron 4 Mg/2 Ml Inj) 4 mg IV NOW PRN PRN Reason: Nausea And Vomiting Ondansetron HCl (Ondansetron 4 Mg Odt) 4 mg PO NOW PRN PRN Reason: Nausea And Vomiting Last Admin: 08/21/22 17:52 Dose: 4 mg Documented By: GRAZYNA Ondansetron HCl (Ondansetron 4 Mg Odt Prepack) 1 bottle MISC SEEINSTR ONE Stop: 08/21/22 19:08 Last Admin: 08/21/22 19:16 Dose: 1 bottle Documented By: FABIOLA Vital Signs Vital signs: Vital Signs - 8 hr 08/21/22 17:02 08/21/22 17:10 08/21/22 17:15 Temperature 99.7 F H Pulse Rate 107 H 101 H 95 H Respiratory Rate 18 Blood Pressure 140/68 Pulse Oximetry 95 95 95 Oxygen Delivery Method Room Air 08/21/22 17:47 08/21/22 17:48 08/21/22 17:48 Temperature Pulse Rate 96 H 96 H Respiratory Rate Blood Pressure 113/63 Pulse Oximetry 96 95 Oxygen Delivery Method 08/21/22 18:00 08/21/22 18:00 08/21/22 18:15 Temperature Pulse Rate 95 H Respiratory Rate Blood Pressure 112/58 L 122/58 L Pulse Oximetry 95 Oxygen Delivery Method 08/21/22 18:15 08/21/22 18:37 08/21/22 18:38 Temperature 99.2 F Pulse Rate 93 H 101 H Respiratory Rate Blood Pressure 137/77 Pulse Oximetry 95 97 Oxygen Delivery Method 08/21/22 18:38 08/21/22 18:45 08/21/22 18:46 Temperature Pulse Rate 98 H 91 H Respiratory Rate Blood Pressure 126/58 L Pulse Oximetry 97 96 Oxygen Delivery Method 08/21/22 18:46 08/21/22 19:00 08/21/22 19:00 Temperature Pulse Rate 92 H 92 H Respiratory Rate Blood Pressure 116/61 Pulse Oximetry 96 96 Oxygen Delivery Method <Arya Medina DO - Last Filed: 08/21/22 20:29> Orders Ordered: ED Orders 08/21/22 17:05 EKG-12 Lead Stat 08/21/22 17:10 Complete Blood Count AUTO DIFF Stat Comprehensive Metabolic Panel Stat Lactate (Lactic Acid) Stat Lipase Stat Procalcitonin Stat 08/21/22 17:26 GI Panel (Film Array) Stat Discontinued Medications Sodium Chloride (Normal Saline 0.9%) 1,000 mls @ 1,000 mls/hr IV BOLUS ONE Stop: 08/21/22 18:09 Last Infusion: 08/21/22 18:03 Dose: 0 mls/hr Documented By: Admin: 08/21/22 17:12 Dose: 1,000 mls/hr Documented By: RB Sodium Chloride (Normal Saline 0.9%) 1,000 mls @ 1,000 mls/hr IV BOLUS ONE Stop: 08/21/22 19:17 Last Infusion: 08/21/22 19:17 Dose: 0 mls/hr Documented By: Admin: 08/21/22 18:21 Dose: 1,000 mls/hr Documented By: GRAZYNA Ondansetron HCl (Ondansetron 4 Mg/2 Ml Inj) 4 mg IV NOW PRN PRN Reason: Nausea And Vomiting Ondansetron HCl (Ondansetron 4 Mg Odt) 4 mg PO NOW PRN PRN Reason: Nausea And Vomiting Last Admin: 08/21/22 17:52 Dose: 4 mg Documented By: GRAZYNA Ondansetron HCl (Ondansetron 4 Mg Odt Prepack) 1 bottle MISC SEEINSTR ONE Stop: 08/21/22 19:08 Last Admin: 08/21/22 19:16 Dose: 1 bottle Documented By: FABIOLA Vital Signs Vital signs: Vital Signs - 8 hr 08/21/22 17:02 08/21/22 17:10 08/21/22 17:15 Temperature 99.7 F H Pulse Rate 107 H 101 H 95 H Respiratory Rate 18 Blood Pressure 140/68 Pulse Oximetry 95 95 95 Oxygen Delivery Method Room Air 08/21/22 17:47 08/21/22 17:48 08/21/22 17:48 Temperature Pulse Rate 96 H 96 H Respiratory Rate Blood Pressure 113/63 Pulse Oximetry 96 95 Oxygen Delivery Method 08/21/22 18:00 08/21/22 18:00 08/21/22 18:15 Temperature Pulse Rate 95 H Respiratory Rate Blood Pressure 112/58 L 122/58 L Pulse Oximetry 95 Oxygen Delivery Method 08/21/22 18:15 07/08/23 18:37 08/21/22 18:38 Temperature 99.2 F Pulse Rate 93 H 101 H Respiratory Rate Blood Pressure 137/77 Pulse Oximetry 95 97 Oxygen Delivery Method 08/21/22 18:38 08/21/22 18:45 08/21/22 18:46 Temperature Pulse Rate 98 H 91 H Respiratory Rate Blood Pressure 126/58 L Pulse Oximetry 97 96 Oxygen Delivery Method 08/21/22 18:46 08/21/22 19:00 08/21/22 19:00 Temperature Pulse Rate 92 H 92 H Respiratory Rate Blood Pressure 116/61 Pulse Oximetry 96 96 Oxygen Delivery Method MDM - Abdominal Pain <Maria L Cardoso, DO - Last Filed: 08/21/22 19:09> Lab Data 08/21/22 17:10 08/21/22 17:10 Labs: Lab Results 08/21/22 08/21/22 08/21/22 Range/Units 17:10 17:10 17:10 WBC 11.4 H (4.5-11.0) X10^3/uL RBC 4.10 (4.0-5.2) X10^6/uL Hgb 12.7 (12.0-16.0) g/dL Hct 38.0 (36-46) % MCV 92.7 (80-100) fL MCH 30.9 (26-34) PG MCHC 33.3 (30-36) % RDW 13.8 (11.6-14.8) % Plt Count 262 (150-400) X10^3/uL Neut % (Auto) 84.6 H (50-75) % Lymph % (Auto) 9.2 L (25-40) % [place] % (Auto) 4.7 (3-14) % Eos % (Auto) 1.0 L (2-4) % Baso % (Auto) 0.5 (0-2) % Neut # (Auto) 9700 H (1729-3132) /uL Lymph # (Auto) 1100 (5331-0888) /uL [place] # (Auto) 500 (0-900) /uL Eos # (Auto) 100 (0-450) /uL Baso # (Auto) 100 (0-100) /uL Sodium 140 (137-145) mmol/L Potassium 3.8 (3.4-5.1) mmol/L Chloride 105 (98-107) mmol/L Carbon Dioxide 24 (22-32) mmol/L BUN 21 H (7-17) mg/dL Creatinine 1.47 H (0.52-1.04) mg/dL Estimated GFR 39 L (>60) mL/min BUN/Creatinine Ratio 14.3 (6-22) Glucose 171 H (80-110) mg/dL Lactate 2.6 H (0.7-2.1) mmol/L Calcium 10.3 H (8.4-10.2) mg/dL Total Bilirubin 0.6 (0.2-1.3) mg/dL AST 42 H (14-36) IU/L ALT 32 (<35) IU/L Alkaline Phosphatase 91 (38-126) U/L Total Protein 7.8 (6.3-8.2) g/dL Albumin 4.5 (3.5-5.0) g/dL Globulin 3.3 (1.7-4.1) g/dL Albumin/Globulin Ratio 1.4 (1.0-2.8) Lipase 20 L (23-300) U/L Procalcitonin (<0.5) ng/mL Stl C. cayetanensis PCR (Not Detect) Stool Rotavirus (PCR) (Not Detect) Stool Adenovirus (PCR) (Not Detect) Stool Astrovirus (PCR) (Not Detect) Stool Cryptosporidium PCR (Not Detect) Stl E.coli Shiga Tox PCR (Not Detect) St Sh/Enteroin Ecoli PCR (Not Detect) Stool E coli O157 PCR Stl Enterotoxigenic E PCR (Not Detect) Stool EPEC (PCR) (Not Detect) Stl E. histolytica PCR (Not Detect) Stool Giardia Lamblia PCR (Not Detect) Stool Sapovirus (PCR) (Not Detect) Stl P. shigelloides PCR (Not Detect) St Y.enterocolitica PCR (Not Detect) Stool Vibrio (PCR) (Not Detect) Stl Vibrio cholerae PCR (Not Detect) Stl Enteroaggr Ecoli PCR (Not Detect) Stl Norovirus GI/GII PCR (Not Detect) Campylobacter (PCR) (Not Detect) C. difficile Tox (PCR) (Not Detect) Salmonella (PCR) (Not Detect) 07/08/23 07/08/23 Range/Units 17:10 17:26 WBC (4.5-11.0) X10^3/uL RBC (4.0-5.2) X10^6/uL Hgb (12.0-16.0) g/dL Hct (36-46) % MCV (80-100) fL MCH (26-34) PG MCHC (30-36) % RDW (11.6-14.8) % Plt Count (150-400) X10^3/uL Neut % (Auto) (50-75) % Lymph % (Auto) (25-40) % [place] % (Auto) (3-14) % Eos % (Auto) (2-4) % Baso % (Auto) (0-2) % Neut # (Auto) (0762-4828) /uL Lymph # (Auto) (0925-0498) /uL [place] # (Auto) (0-900) /uL Eos # (Auto) (0-450) /uL Baso # (Auto) (0-100) /uL Sodium (137-145) mmol/L Potassium (3.4-5.1) mmol/L Chloride (98-107) mmol/L Carbon Dioxide (22-32) mmol/L BUN (7-17) mg/dL Creatinine (0.52-1.04) mg/dL Estimated GFR (>60) mL/min BUN/Creatinine Ratio (6-22) Glucose (80-110) mg/dL Lactate (0.7-2.1) mmol/L Calcium (8.4-10.2) mg/dL Total Bilirubin (0.2-1.3) mg/dL AST (14-36) IU/L ALT (<35) IU/L Alkaline Phosphatase (38-126) U/L Total Protein (6.3-8.2) g/dL Albumin (3.5-5.0) g/dL Globulin (1.7-4.1) g/dL Albumin/Globulin Ratio (1.0-2.8) Lipase (23-300) U/L Procalcitonin 0.12 (<0.5) ng/mL Stl C. cayetanensis PCR Not detected (Not Detect) Stool Rotavirus (PCR) Not detected (Not Detect) Stool Adenovirus (PCR) Not detected (Not Detect) Stool Astrovirus (PCR) Not detected (Not Detect) Stool Cryptosporidium PCR Not detected (Not Detect) Stl E.coli Shiga Tox PCR Not detected (Not Detect) St Sh/Enteroin Ecoli PCR Not detected (Not Detect) Stool E coli O157 PCR Not Reportable Stl Enterotoxigenic E PCR Not detected (Not Detect) Stool EPEC (PCR) Not detected (Not Detect) Stl E. histolytica PCR Not detected (Not Detect) Stool Giardia Lamblia PCR Not detected (Not Detect) Stool Sapovirus (PCR) Not detected (Not Detect) Stl P. shigelloides PCR Not detected (Not Detect) St Y.enterocolitica PCR Not detected (Not Detect) Stool Vibrio (PCR) Not detected (Not Detect) Stl Vibrio cholerae PCR Not detected (Not Detect) Stl Enteroaggr Ecoli PCR Not detected (Not Detect) Stl Norovirus GI/GII PCR Not detected (Not Detect) Campylobacter (PCR) Not detected (Not Detect) C. difficile Tox (PCR) Not detected (Not Detect) Salmonella (PCR) Not detected (Not Detect) ECG Data Interpretation: Sinus rhythm rate 94 RI interval 186 QRS 88 QTC 452 Q-wave noted in AVF no ST changes MDM Narrative Medical decision making narrative: Patient 67-year-old female presenting today with a gastroenteritis. She had 1 bowel movement ED surprisingly blood work is overall reassuring without significant GAEL or electrolyte abnormality. No leukocytosis or fever. GI panel is negative. She reports that she needs nausea medication orally keep fluids down but she is not actively vomiting. At this time no need for admission. Encouraged Imodium and hydration. Given her Zofran to help. Encourage her to return if needed. <Arya Medina, DO - Last Filed: 08/21/22 20:29> Lab Data Labs: Lab Results 08/21/22 08/21/22 08/21/22 Range/Units 17:10 17:10 17:10 WBC 11.4 H (4.5-11.0) X10^3/uL RBC 4.10 (4.0-5.2) X10^6/uL Hgb 12.7 (12.0-16.0) g/dL Hct 38.0 (36-46) % MCV 92.7 (80-100) fL MCH 30.9 (26-34) PG MCHC 33.3 (30-36) % RDW 13.8 (11.6-14.8) % Plt Count 262 (150-400) X10^3/uL Neut % (Auto) 84.6 H (50-75) % Lymph % (Auto) 9.2 L (25-40) % [place] % (Auto) 4.7 (3-14) % Eos % (Auto) 1.0 L (2-4) % Baso % (Auto) 0.5 (0-2) % Neut # (Auto) 9700 H (2582-0282) /uL Lymph # (Auto) 1100 (9154-1472) /uL [place] # (Auto) 500 (0-900) /uL Eos # (Auto) 100 (0-450) /uL Baso # (Auto) 100 (0-100) /uL Sodium 140 (137-145) mmol/L Potassium 3.8 (3.4-5.1) mmol/L Chloride 105 (98-107) mmol/L Carbon Dioxide 24 (22-32) mmol/L BUN 21 H (7-17) mg/dL Creatinine 1.47 H (0.52-1.04) mg/dL Estimated GFR 39 L (>60) mL/min BUN/Creatinine Ratio 14.3 (6-22) Glucose 171 H (80-110) mg/dL Lactate 2.6 H (0.7-2.1) mmol/L Calcium 10.3 H (8.4-10.2) mg/dL Total Bilirubin 0.6 (0.2-1.3) mg/dL AST 42 H (14-36) IU/L ALT 32 (<35) IU/L Alkaline Phosphatase 91 (38-126) U/L Total Protein 7.8 (6.3-8.2) g/dL Albumin 4.5 (3.5-5.0) g/dL Globulin 3.3 (1.7-4.1) g/dL Albumin/Globulin Ratio 1.4 (1.0-2.8) Lipase 20 L (23-300) U/L Procalcitonin (<0.5) ng/mL Stl C. cayetanensis PCR (Not Detect) Stool Rotavirus (PCR) (Not Detect) Stool Adenovirus (PCR) (Not Detect) Stool Astrovirus (PCR) (Not Detect) Stool Cryptosporidium PCR (Not Detect) Stl E.coli Shiga Tox PCR (Not Detect) St Sh/Enteroin Ecoli PCR (Not Detect) Stool E coli O157 PCR Stl Enterotoxigenic E PCR (Not Detect) Stool EPEC (PCR) (Not Detect) Stl E. histolytica PCR (Not Detect) Stool Giardia Lamblia PCR (Not Detect) Stool Sapovirus (PCR) (Not Detect) Stl P. shigelloides PCR (Not Detect) St Y.enterocolitica PCR (Not Detect) Stool Vibrio (PCR) (Not Detect) Stl Vibrio cholerae PCR (Not Detect) Stl Enteroaggr Ecoli PCR (Not Detect) Stl Norovirus GI/GII PCR (Not Detect) Campylobacter (PCR) (Not Detect) C. difficile Tox (PCR) (Not Detect) Salmonella (PCR) (Not Detect) 08/21/22 08/21/22 Range/Units 17:10 17:26 WBC (4.5-11.0) X10^3/uL RBC (4.0-5.2) X10^6/uL Hgb (12.0-16.0) g/dL Hct (36-46) % MCV (80-100) fL MCH (26-34) PG MCHC (30-36) % RDW (11.6-14.8) % Plt Count (150-400) X10^3/uL Neut % (Auto) (50-75) % Lymph % (Auto) (25-40) % [place] % (Auto) (3-14) % Eos % (Auto) (2-4) % Baso % (Auto) (0-2) % Neut # (Auto) (9413-4008) /uL Lymph # (Auto) (7206-3109) /uL [place] # (Auto) (0-900) /uL Eos # (Auto) (0-450) /uL Baso # (Auto) (0-100) /uL Sodium (137-145) mmol/L Potassium (3.4-5.1) mmol/L Chloride (98-107) mmol/L Carbon Dioxide (22-32) mmol/L BUN (7-17) mg/dL Creatinine (0.52-1.04) mg/dL Estimated GFR (>60) mL/min BUN/Creatinine Ratio (6-22) Glucose (80-110) mg/dL Lactate (0.7-2.1) mmol/L Calcium (8.4-10.2) mg/dL Total Bilirubin (0.2-1.3) mg/dL AST (14-36) IU/L ALT (<35) IU/L Alkaline Phosphatase (38-126) U/L Total Protein (6.3-8.2) g/dL Albumin (3.5-5.0) g/dL Globulin (1.7-4.1) g/dL Albumin/Globulin Ratio (1.0-2.8) Lipase (23-300) U/L Procalcitonin 0.12 (<0.5) ng/mL Stl C. cayetanensis PCR Not detected (Not Detect) Stool Rotavirus (PCR) Not detected (Not Detect) Stool Adenovirus (PCR) Not detected (Not Detect) Stool Astrovirus (PCR) Not detected (Not Detect) Stool Cryptosporidium PCR Not detected (Not Detect) Stl E.coli Shiga Tox PCR Not detected (Not Detect) St Sh/Enteroin Ecoli PCR Not detected (Not Detect) Stool E coli O157 PCR Not Reportable Stl Enterotoxigenic E PCR Not detected (Not Detect) Stool EPEC (PCR) Not detected (Not Detect) Stl E. histolytica PCR Not detected (Not Detect) Stool Giardia Lamblia PCR Not detected (Not Detect) Stool Sapovirus (PCR) Not detected (Not Detect) Stl P. shigelloides PCR Not detected (Not Detect) St Y.enterocolitica PCR Not detected (Not Detect) Stool Vibrio (PCR) Not detected (Not Detect) Stl Vibrio cholerae PCR Not detected (Not Detect) Stl Enteroaggr Ecoli PCR Not detected (Not Detect) Stl Norovirus GI/GII PCR Not detected (Not Detect) Campylobacter (PCR) Not detected (Not Detect) C. difficile Tox (PCR) Not detected (Not Detect) Salmonella (PCR) Not detected (Not Detect) Discharge Plan Departure Patient Disposition: Home Clinical Impression: Gastroenteritis Instructions: DI for Viral Gastroenteritis -- Adult Activity Restrictions/Additional Instructions: 1) You have been diagnosed with gastroenteritis At this time viral panel was negative and blood work is reassuring. 2) What to do: Drink frequent but small amounts of fluids. I recommend Gatorade or a Gatorade-like product, as it has small amounts of sugar and salts that improve fluid retention. 3) Take medications as directed Zofran 4 mg every 8 hours if needed for nausea or vomiting 4) Follow up with your primary care provider in 2-3 days 5) Return to ER if you should have any new or worsening symptoms such as, unable to hold down fluids despite use of anti-nausea medications and the small volume oral rehydration strategy. Prescriptions: New ondansetron 4 mg tablet,disintegrating 4 mg PO Q8H PRN (Reason: nausea and vomiting) Qty: 10 0RF No Action mupirocin 2 % ointment 1 applic topical TID Qty: 15 0RF bisoprolol fumarate 5 mg tablet 5 mg PO DAILY fluconazole 150 mg tablet 150 mg PO DAILY Qty: 2 0RF ibuprofen 800 mg tablet 800 mg PO Q8HP PRN (Reason: inflammation) Qty: 30 6RF oxycodone-acetaminophen [Percocet] 5-325 mg tablet 1 tab PO Q6HP PRN (Reason: pain) Qty: 25 0RF multivitamin Capsule 1 cap PO DAILY Qty: 0 atorvastatin [Lipitor] 20 mg Tablet 20 mg PO HS Qty: 0 [pen needles] See Rx Instructions subcut 5XD Qty: 450 1RF Rx Instructions: inject insulin subcut 5 times a day; losartan [Cozaar] 25 mg tablet 25 mg PO Q DAY Qty: 90 3RF (DME) Blood Glucose Test Strip See Dose Instructions .ROUTE .MEDSUPPLY Qty: 450 11RF Dose Instruction: As directed Rx Instructions: OneTouch Verio Test strips - test 5x daily as directed duloxetine 60 mg capsule,delayed release(DR/EC) See Rx Instructions .ROUTE .COMPLEX Qty: 180 1RF Dose Instruction: take 2 capsules by mouth once daily Rx Instructions: take 2 capsules by mouth once daily levothyroxine 137 mcg tablet 137 mcg PO DAILY Qty: 90 3RF insulin glargine 100 unit/mL (3 mL) insulin pen See Rx Instructions .ROUTE .COMPLEX Qty: 45 9RF Dose Instruction: Inject 60 units under the skin twice a day Rx Instructions: Inject 60 units under the skin twice a day insulin lispro 100 unit/mL insulin pen See Rx Instructions .ROUTE .COMPLEX Qty: 30 5RF Dose Instruction: Inject 30 to 50 units under the skin 4 times daily Rx Instructions: Inject 30 to 50 units under the skin 4 times daily cyclobenzaprine 10 mg tablet See Rx Instructions .ROUTE .COMPLEX Qty: 180 1RF Dose Instruction: take 1 tablet by mouth twice a day if needed for TMJ AND MUSCLE SPASMS Rx Instructions: take 1 tablet by mouth twice a day if needed for TMJ AND MUSCLE SPASMS pantoprazole 40 mg tablet,delayed release (DR/EC) See Rx Instructions .ROUTE .COMPLEX Qty: 90 1RF Dose Instruction: take 1 tablet by mouth once daily Rx Instructions: take 1 tablet by mouth once daily montelukast 10 mg tablet See Rx Instructions .ROUTE .COMPLEX Qty: 90 3RF Dose Instruction: take 1 tablet by mouth once daily Rx Instructions: take 1 tablet by mouth once daily ondansetron 4 mg tablet,disintegrating See Rx Instructions .ROUTE .COMPLEX Qty: 10 1RF Dose Instruction: Dissolve 1 tablet (4 mg) on the tongue 3 to 4 times daily as needed for nausea and vomiting Rx Instructions: Dissolve 1 tablet (4 mg) on the tongue 3 to 4 times daily as needed for nausea and vomiting albuterol sulfate 90 mcg/actuation HFA aerosol inhaler See Rx Instructions .ROUTE .COMPLEX Qty: 6.7 1RF Dose Instruction: Inhale 2 puffs every 6 hours as needed for shortness of breath or wheezing Rx Instructions: Inhale 2 puffs every 6 hours as needed for shortness of breath or wheezing (DME) Respironics System One 60 series BIPAP Qty: 1 Dose Instruction: As directed Patient Comments: Pressure: IPAP 16 EPAP 11 DME: [facility] Rx Instructions: As directed eszopiclone [Lunesta] 3 mg tablet 3 mg PO BEDTIME Qty: 30 0RF Referrals: She Tate DO [Primary Care Provider] - Stand Alone Forms: Patient Portal/API <Arya Medina DO - Last Filed: 08/21/22 20:29> Cosign ED Attending Cosignature Attestation: Dr medina: This note is signed by myself for administrative purposes only. It was assigned to me inadvertently in anticipation of a turned over however the patient was discharged by Dr. Cardoso prior to any clinical interaction by myself
[2022-08-21 17:38] LABS: Alanine Aminotransferase 32 IU/L (<35); Albumin 4.5 g/dL (3.5-5.0); Albumin Globulin Ratio 1.4 (1.0-2.8); Alkaline Phosphatase 91 U/L (38-126); Aspartate Aminotransferase 42 IU/L (14-36); BUN Creatinine Ratio 14.3 (6-22); Bilirubin Total 0.6 mg/dL (0.2-1.3); Blood Urea Nitrogen 21 mg/dL (7-17); Calcium 10.3 mg/dL (8.4-10.2); Carbon Dioxide 24 mmol/L (22-32); Chloride 105 mmol/L (98-107); Estimated Glomerular Filt Rate 39 mL/min (>60); Globulin 3.3 g/dL (1.7-4.1); Glucose 171 mg/dL (80-110); HEMOLYSIS < 15 (0-50); Lactate (Lactic Acid) 2.6 mmol/L (0.7-2.1); Lipase 20 U/L (23-300); Potassium 3.8 mmol/L (3.4-5.1); Sodium 140 mmol/L (137-145); Total Protein 7.8 g/dL (6.3-8.2)
[2022-08-21] MEDS: ONDANSETRON 4 MG ODT PO (17:52)
[2022-08-21 17:55] LABS: Procalcitonin 0.12 ng/mL (<0.5)
[2022-08-21 19:03] LABS: Adenovirus F 40/41 Not Detected (Not Detect); Astrovirus Not Detected (Not Detect); Campylobacter Not Detected (Not Detect); Clostridium difficile toxin AB Not Detected (Not Detect); Cryptosporidium Not Detected (Not Detect); Cyclospora cayetanensis Not Detected (Not Detect); Entamoeba histolytica Not Detected (Not Detect); Enteroaggregative E.coli Not Detected (Not Detect); Enteropathogenic E.coli Not Detected (Not Detect); Enterotoxigenic E.coli It/st Not Detected (Not Detect); Giardia lamblia Not Detected (Not Detect); Norovirus GI/GII Not Detected (Not Detect); Plesiomonsa shigelloides Not Detected (Not Detect); Rotavirus A Not Detected (Not Detect); Salmonella Not Detected (Not Detect); Sapovirus Not Detected (Not Detect); Shiga-like toxin-prod E.coli Not Detected (Not Detect); Shigella/Enteroinvasive E.coli Not Detected (Not Detect); Vibrio Not Detected (Not Detect); Vibrio cholerae Not Detected (Not Detect); Yersinia enterocolitica Not Detected (Not Detect)
[2022-08-21] MEDS: ONDANSETRON 4 MG ODT PREPACK 1 BOTTLE MISC (19:16)
[2022-08-21 19:19] LABS: Reflexed Lactate in 2 Hours Y
== END 2022-08-21 19:19 | disposition home or self-care (01) ==
PROVIDERS: Emergency Provider Emergency Medicine; Family Provider Internal Medicine Endocrinology, Diabetes & Metabolism; PCP Family Medicine
DX: K52.9 Noninfective gastroenteritis and colitis, unspecified (principal); R03.1 Nonspecific low blood-pressure reading
CPT/HCPCS: 36415; 80053; 83605; 83690; 84145; 85025; 87507; 93005; 93010; 99284

== ENCOUNTER → 2022-09-28 12:19 | Outpatient (CLI) | payer OTHER, SELFPAY ==
[2022-09-28 12:52] LABS: Add Manual Diff / Slide Review NO; Basophils Absolute Auto 0 /uL (0-100); Basophils Percent Auto 0.6 % (0-2); Eosinophils Absolute Auto 300 /uL (0-450); Eosinophils Percent Auto 6.4 % (2-4); Hematocrit 36.3 % (36-46); Hemoglobin 12.2 g/dL (12.0-16.0); Lymphocytes Absolute Auto 1700 /uL (1100-4500); Lymphocytes Percent Auto 30.7 % (25-40); Mean Corpuscular HGB Conc 33.6 % (30-36); Mean Corpuscular Volume 92.3 fL (80-100); Monocytes Absolute Auto 400 /uL (0-900); Monocytes Percent Auto 7.7 % (3-14); Neutrophils Absolute Auto 3000 /uL (1500-7000); Neutrophils Percent Auto 54.6 % (50-75); Platelet Count 237 X10^3/uL (150-400); Red Blood Cell Count 3.93 X10^6/uL (4.0-5.2); Red Cell Distribution Width 14.3 % (11.6-14.8); White Blood Cell Count 5.4 X10^3/uL (4.5-11.0)
[2022-09-28 13:16] LABS: Alanine Aminotransferase 26 IU/L (<35); Albumin 4.1 g/dL (3.5-5.0); Albumin Globulin Ratio 1.5 (1.0-2.8); Alkaline Phosphatase 128 U/L (38-126); Aspartate Aminotransferase 39 IU/L (14-36); BUN Creatinine Ratio 14.8 (6-22); Bilirubin Total 0.4 mg/dL (0.2-1.3); Blood Urea Nitrogen 20 mg/dL (7-17); Carbon Dioxide 27 mmol/L (22-32); Chloride 107 mmol/L (98-107); Cholesterol 144 mg/dL (140-199); Estimated Glomerular Filt Rate 43 mL/min (>60); Globulin 2.8 g/dL (1.7-4.1); Glucose 129 mg/dL (80-110); HDL Cholesterol 42 mg/dL (40-60); HEMOLYSIS < 15 (0-50); LDL Cholesterol Calculated 52 mg/dL (<100); Potassium 4.3 mmol/L (3.4-5.1); Sodium 141 mmol/L (137-145); Total Protein 6.9 g/dL (6.3-8.2); Triglycerides 252 mg/dL (35-150)
[2022-09-28 13:32] LABS: Free T3, Triiodothyronine Free 3.38 pg/mL (2.77-5.27)
[2022-09-28 13:45] LABS: TSH w/ Reflex to FT4 3.42 uIU/mL (0.47-4.68)
[2022-09-28 15:52] LABS: Creatinine Urine Random 171.2 mg/dL
[2022-09-28 15:53] LABS: Microalbumi Creatinin Ratio Ur 5.2 ug/mg CR (<30); Microalbumin Urine Random 0.9 mg/dL (0-1.6)
[2022-09-29 04:24] LABS: x Labcorp Estim. Avg Glu (eAG) 183 mg/dL (.)
== END ==
PROVIDERS: Family Provider Internal Medicine Endocrinology, Diabetes & Metabolism; PCP Family Medicine; Referring Provider Family Medicine; Visit Provider Family Medicine
DX: E03.9 Hypothyroidism, unspecified (principal); E66.01 Morbid (severe) obesity due to excess calories; G47.33 Obstructive sleep apnea (adult) (pediatric); I10 Essential (primary) hypertension; N18.31 Chronic kidney disease, stage 3a; Z68.41 Body mass index [BMI] 40.0-44.9, adult; E11.65 Type 2 diabetes mellitus with hyperglycemia
CPT/HCPCS: 36415; 80053; 80061; 82043; 82570; 83036; 84443; 84481; 85025

== ENCOUNTER 2023-09-05 19:50 | Emergency (ER) | payer OTHER, SELFPAY ==
[2023-09-05 19:56] VITALS: BP 161/83; PULSE 103; RESP 18; TEMP 36.1; O2SAT 97; BMI 40.3
[2023-09-05] MEDS: ONDANSETRON 4 MG/2 ML INJ IV (20:18)
[2023-09-05 20:29] LABS: Add Manual Diff / Slide Review NO; Basophils Absolute Auto 100 /uL (0-100); Basophils Percent Auto 0.6 % (0-2); Eosinophils Absolute Auto 500 /uL (0-450); Eosinophils Percent Auto 5.5 % (2-4); Hemoglobin 13.1 g/dL (12.0-16.0); Lymphocytes Absolute Auto 2800 /uL (1100-4500); Mean Corpuscular HGB Conc 33.5 % (30-36); Mean Corpuscular Hemoglobin 31.1 PG (26-34); Mean Corpuscular Volume 92.9 fL (80-100); Monocytes Absolute Auto 700 /uL (0-900); Neutrophils Absolute Auto 5900 /uL (1500-7000); Neutrophils Percent Auto 58.9 % (50-75); Platelet Count 313 X10^3/uL (150-400); Red Cell Distribution Width 14.2 % (11.6-14.8); White Blood Cell Count 9.9 X10^3/uL (4.5-11.0)
[2023-09-05 20:45] LABS: Alanine Aminotransferase 30 IU/L (<35); Albumin 4.6 g/dL (3.5-5.0); Albumin Globulin Ratio 1.4 (1.0-2.8); Alkaline Phosphatase 102 U/L (38-126); Aspartate Aminotransferase 50 IU/L (14-36); BUN Creatinine Ratio 13.4 (6-22); Bilirubin Total 0.4 mg/dL (0.2-1.3); Blood Urea Nitrogen 18 mg/dL (7-17); Calcium 10.1 mg/dL (8.4-10.2); Carbon Dioxide 26 mmol/L (22-32); Chloride 106 mmol/L (98-107); Estimated Glomerular Filt Rate 43 mL/min (>60); Globulin 3.4 g/dL (1.7-4.1); Glucose 160 mg/dL (80-110); HEMOLYSIS 22 (0-50); Potassium 3.9 mmol/L (3.4-5.1); Sodium 141 mmol/L (137-145)
[2023-09-05 22:08] VITALS: BP 180/97; PULSE 89; RESP 16; TEMP 36.1; O2SAT 97
[2023-09-06] VITALS (16 sets, daily range): BP systolic 124–178; BP diastolic 58–85; PULSE 81–108; RESP 16; TEMP 36.3; O2SAT 96–100
[2023-09-06] MEDS: ONDANSETRON 4 MG/2 ML INJ IV (01:27)
--- NOTE | 2023-09-06 07:30 | DI.CT.S_ITS ---
PROCEDURE: CT ABDOMEN PELVIS WO CON INDICATIONS: N/V/D X 8 DAYS TECHNIQUE: Axial sections were acquired from the lung bases to the pubic symphysis. Coronal and sagittal reformats were performed. For radiation dose reduction, the following was used: automated exposure control, adjustment of mA and/or kV according to patient size. COMPARISON: None. FINDINGS: Image quality: Motion degraded Lower chest: Lung bases appear unremarkable. Mildly patulous distal esophagus with some fluid, and wall thickening. Liver: Hepatic steatosis. No contour deforming mass. Solid organs are poorly assessed without IV contrast. Gallbladder and biliary system: Cholecystectomy clips. Dilated biliary system is seen, possibly related to post cholecystectomy state, correlate with LFTs. Pancreas: No ductal dilation Spleen: Nonenlarged Adrenals: No discrete nodules Kidneys: No contour deforming mass or hydronephrosis. Vessels and lymph nodes: No abdominal aortic aneurysm. No pathologic lymph nodes by size criteria. Bowel and peritoneum: No evidence of small bowel obstruction. No pathologic ascites. Mostly liquid colonic and small bowel contents. Nonspecific mesenteric root fat stranding. Body wall: Unremarkable Pelvis: Bladder is unremarkable. Reproductive organs are poorly evaluated on this study, overall unremarkable Bones: Degenerative changes, no acute or suspicious osseous finding IMPRESSION: No small bowel obstruction. Prominent fluid contents in the small bowel and proximal large bowel, probably enterocolitis. No pathologic ascites. Mild wall thickening and distal esophageal patulous appearance, possibly esophagitis. Consider endoscopic correlation if needed. Hepatic steatosis. Other findings as above on this limited noncontrast study. Dictated by: Thompson Le M.D. on 09/06/2023 at 9:10 Approved by: Thompson Le M.D. on 09/06/2023 at 9:15
--- NOTE | 2023-09-06 07:32 | ED_ITS ---
HPI - Nausea/Vomiting/Diarrhea General Chief complaint: Nausea/Vomiting/Diarrhea Stated complaint: sent by Dr vomiting and diarrhea Time Seen by Provider: 09/06/23 07:24 Source: patient Mode of arrival: Ambulatory History of Present Illness HPI Narrative: 68-year-old female with history of insulin-dependent diabetes, hypertension, hypothyroidism presents by private vehicle from home for 8 days of ?platt? diarrhea and 2 days of generalized abdominal pain with nonbloody nonbilious emesis. Patient has been taking Imodium at home without significant relief. Patient is concerned at the amount of vomiting and states that she was not been able to keep very much down in his concerned that she may be dehydrated. Related Data Home Medications Medication Instructions Recorded Confirmed multivitamin 1 cap PO DAILY ##0 02/17/08 10/05/22 Respironics System One 60 series #1 ea 09/29/18 10/05/22 BIPAP bisoprolol fumarate 5 mg tablet 5 mg PO DAILY 12/07/18 10/05/22 atorvastatin 40 mg tablet 40 mg PO DAILY 10/05/22 10/05/22 fenofibrate 160 mg tablet 160 mg PO DAILY 10/05/22 10/05/22 levothyroxine 150 mcg tablet 150 mcg PO DAILY 10/05/22 10/05/22 Previous Rx's Medication Instructions Recorded [pen needles] See Rx Instructions SUBCUT 5XD 10/26/18 #450 units losartan 25 mg tablet (Cozaar) 25 mg PO Q DAY #90 mg 01/12/19 blood sugar diagnostic (Blood #450 ea 12/10/21 Glucose Test strips) mupirocin 2 % topical ointment 1 applic topical TID #15 grams 03/05/22 albuterol sulfate 90 mcg/actuation See Rx Instructions .Route 05/17/22 aerosol inhaler .COMPLEX #6.7 grams ondansetron 4 mg disintegrating 4 mg PO Q6-8H PRN nausea and 01/17/23 tablet vomiting #45 tabs cyclobenzaprine 10 mg tablet See Rx Instructions .Route 03/30/23 .COMPLEX #180 tabs montelukast 10 mg tablet 10 mg PO DAILY #90 tabs 03/30/23 empagliflozin 10 mg tablet 10 mg PO DAILY #30 tabs 04/11/23 (Jardiance) eszopiclone 3 mg tablet (Lunesta) 3 mg PO BEDTIME Use sparingly #30 04/11/23 tabs insulin regular hum U-500 conc 500 See Rx Instructions SUBCUT BEDTIME 04/11/23 unit/mL(3 mL) subcut pen (Humulin #6 mL R U-500 (Conc) Insulin Kwikpen) semaglutide 1 mg/dose (4 mg/3 mL) 1 mg (0.75 mL) SUBCUT QWEEK #3 mL 04/11/23 subcutaneous pen injector (Ozempic) duloxetine 60 mg capsule,delayed 120 mg (2 x 60 mg) PO DAILY #180 04/15/23 release caps pantoprazole 40 mg tablet,delayed 40 mg PO DAILY #90 tabs 05/30/23 release oxycodone-acetaminophen 5 mg-325 1 tab PO .qhs PRN pain 30 days #30 08/19/23 mg tablet (Percocet) tabs oxycodone-acetaminophen 5 mg-325 1 tab PO .qhs PRN pain 30 days #30 08/19/23 mg tablet (Percocet) tabs oxycodone-acetaminophen 5 mg-325 1 tab PO .qhs PRN pain 30 days #30 08/19/23 mg tablet (Percocet) tabs cephalexin 500 mg capsule 500 mg PO Q12H #10 caps 09/06/23 dicyclomine 20 mg tablet 20 mg PO TID PRN abdominal pain 09/06/23 #30 tabs promethazine 25 mg tablet 25 mg PO Q6H PRN nausea and 09/06/23 vomiting #30 tabs Allergies Allergy/AdvReac Type Severity Reaction Status Date / Time nickel Allergy Mild Verified 10/05/22 13:19 clindamycin [CLINDAMYCIN] Allergy Unknown Verified 10/05/22 13:19 codeine [CODEINE] Allergy Unknown Verified 10/05/22 13:19 hydrocodone [HYDROCODONE] Allergy Unknown Verified 10/05/22 13:19 meperidine [MEPERIDINE] Allergy Unknown Verified 10/05/22 13:19 methadone [METHADONE] Allergy Unknown Verified 10/05/22 13:19 prednisone [PREDNISONE] Allergy Unknown hives Verified 10/05/22 13:19 Sulfa (Sulfonamide Allergy Unknown Verified 10/05/22 13:19 Antibiotics) [SULFA (SULFONAMIDE ANTIBIOTICS)] cow Allergy Unknown Uncoded 10/05/22 13:19 Patient History Medical History CKD stage 3 secondary to diabetes CKD (chronic kidney disease) stage 3, GFR 30-59 ml/min Insomnia Morbid obesity with BMI of 40.0-44.9, adult Chronic prescription opiate use Chronic kidney disease Diabetic neuropathy Obstructive sleep apnea Meniere's disease, unspecified (01/18/02) Peripheral neuropathy Recurrent sinusitis (~1976) Frequent UTI Gastroparesis Ugalde's esophagus (2012) Ventricular tachycardia Cardiac arrhythmia Chronic cough Left knee pain (~2001) Toe fracture, left (2013) Foot fracture, left (1989) Neuropathic pain of foot (~1987) CTS (carpal tunnel syndrome) (2015) Chronic back pain (~1987) Hayfever Asthma Sleep apnea Diabetes mellitus (1977) Hypothyroidism (1999) Hemorrhoids GERD (gastroesophageal reflux disease) Vertigo Anemia Chicken pox (1969) Measles (1962) Mumps (~1969) Plantar warts (~1972) Chronic headaches (~1985) Osteoarthritis (2013) Type 2 diabetes mellitus (10/08/03) Essential hypertension (01/30/03) Surgical History History of thumb surgery (2014) History of cholecystectomy (~2005) History of eye surgery (1961) Anesthesia History of carpal tunnel release (2014) History of surgery (1999) History of left knee surgery (1972) History of verrucae (wart) excision (1974) Status post discectomy (1999) Status post knee surgery (2001) Status post laminectomy (1987) Family History Child Age: 42 Mentally disabled Low TSH level Encephalitis Father Age: 91 Pacemaker Heart disease Hypertension Mother Diabetes mellitus High cholesterol Brain tumor Sister Age: 70 Hypertension Sister Age: 65 Diabetes mellitus Heart disease Hypertension High cholesterol Brother Diabetes mellitus Brother Hypertension Social History household members: spouse and family Smoking Status: Former smoker Smoking Status: Former smoker alcohol intake frequency: holidays/special occasions only Substance Use Type: does not use Exam Initial Vital Signs Initial Vital Signs: Vital Signs Temperature 97.0 F L 09/05/23 19:56 Pulse Rate 103 H 09/05/23 19:56 Respiratory Rate 18 09/05/23 19:56 Blood Pressure 161/83 H 09/05/23 19:56 Pulse Oximetry 97 09/05/23 19:56 Oxygen Delivery Method Room Air 09/05/23 19:56 Const: Awake, alert, appears chronically unwell Cardiac: regular rate, regular rhythm RESP: unlabored, clear bilaterally, no wheezing GI: Soft, generalized tenderness to deep palpation without rebound or guarding Skin: Warm, Dry, intact, no rashes Neuro: AO x3, CN II-XII grossly intact, moves all extremities Course Orders Ordered: Discontinued Medications Droperidol (Droperidol 5 Mg/2 Ml Vial) 2.5 mg IV NOW ONE Stop: 09/06/23 07:31 Last Admin: 09/06/23 07:47 Dose: 2.5 mg Documented By: SHERIN Sodium Chloride (Normal Saline 0.9%) 1,000 mls @ 1,000 mls/hr IV BOLUS ONE Stop: 09/06/23 08:29 Last Infusion: 09/06/23 09:20 Dose: Infused Documented By: Admin: 09/06/23 07:48 Dose: 1,000 mls/hr Documented By: SHERIN Ondansetron HCl (Ondansetron 4 Mg/2 Ml Inj) 4 mg IV NOW ONE Stop: 09/05/23 20:03 Last Admin: 09/05/23 20:18 Dose: 4 mg Documented By: KEITH Ondansetron HCl (Ondansetron 4 Mg/2 Ml Inj) 4 mg IV NOW ONE Stop: 09/06/23 01:20 Last Admin: 09/06/23 01:27 Dose: 4 mg Documented By: SHERON Vital Signs Vital signs: Vital Signs - 8 hr 09/06/23 07:25 09/06/23 07:26 09/06/23 07:26 Pulse Rate 100 H 98 H Blood Pressure 168/79 H Pulse Oximetry 96 98 09/06/23 07:30 09/06/23 07:30 09/06/23 07:58 Pulse Rate 87 Blood Pressure 157/64 H 127/77 Pulse Oximetry 98 09/06/23 07:58 09/06/23 08:00 09/06/23 08:03 Pulse Rate 84 90 Blood Pressure 124/58 L Pulse Oximetry 96 96 09/06/23 08:03 09/06/23 08:30 09/06/23 08:30 Pulse Rate 83 84 Blood Pressure 148/69 H Pulse Oximetry 97 98 09/06/23 09:00 09/06/23 09:00 09/06/23 09:30 Pulse Rate 81 Blood Pressure 149/67 H 148/69 H Pulse Oximetry 99 09/06/23 09:30 09/06/23 09:47 09/06/23 09:47 Pulse Rate 86 108 H Blood Pressure 178/81 H Pulse Oximetry 100 99 09/06/23 10:00 09/06/23 10:00 09/06/23 10:30 Pulse Rate 88 87 Blood Pressure 149/67 H Pulse Oximetry 96 96 09/06/23 10:30 09/06/23 11:23 09/06/23 11:24 Pulse Rate 90 Blood Pressure 144/64 H 143/65 H Pulse Oximetry 97 09/06/23 11:24 09/06/23 11:30 09/06/23 11:30 Pulse Rate 90 89 Blood Pressure 138/60 Pulse Oximetry 98 97 MDM - Nausea/Vomiting/Diarrhea Lab Data 09/06/23 08:13 09/06/23 08:13 Labs: Lab Results 09/05/23 09/06/23 09/06/23 Range/Units 20:19 08:13 09:48 WBC 9.9 9.0 (4.5-11.0) X10^3/uL RBC 4.20 4.13 (4.0-5.2) X10^6/uL Hgb 13.1 12.9 (12.0-16.0) g/dL Hct 39.0 38.8 (36-46) % MCV 92.9 94.0 (80-100) fL MCH 31.1 31.4 (26-34) PG MCHC 33.5 33.4 (30-36) % RDW 14.2 14.6 (11.6-14.8) % Plt Count 313 297 (150-400) X10^3/uL Neut % (Auto) 58.9 67.7 (50-75) % Lymph % (Auto) 28.0 20.5 L (25-40) % [place] % (Auto) 7.0 6.9 (3-14) % Eos % (Auto) 5.5 H 4.4 H (2-4) % Baso % (Auto) 0.6 0.5 (0-2) % Neut # (Auto) 5900 6100 (2526-6840) /uL Lymph # (Auto) 2800 1800 (4141-9874) /uL [place] # (Auto) 700 600 (0-900) /uL Eos # (Auto) 500 H 400 (0-450) /uL Baso # (Auto) 100 0 (0-100) /uL Sodium 141 138 (137-145) mmol/L Potassium 3.9 4.3 (3.4-5.1) mmol/L Chloride 106 110 H (98-107) mmol/L Carbon Dioxide 26 20 L (22-32) mmol/L BUN 18 H 18 H (7-17) mg/dL Creatinine 1.34 H 1.21 H (0.52-1.04) mg/dL Estimated GFR 43 L 49 L (>60) mL/min BUN/Creatinine Ratio 13.4 14.9 (6-22) Glucose 160 H 206 H (80-110) mg/dL Lactate 1.6 (0.7-2.1) mmol/L Calcium 10.1 9.9 (8.4-10.2) mg/dL Magnesium 3.0 H (1.6-2.3) mg/dL Total Bilirubin 0.4 0.5 (0.2-1.3) mg/dL AST 50 H 40 H (14-36) IU/L ALT 30 28 (<35) IU/L Alkaline Phosphatase 102 103 (38-126) U/L Total Protein 8.0 7.7 (6.3-8.2) g/dL Albumin 4.6 4.3 (3.5-5.0) g/dL Globulin 3.4 3.4 (1.7-4.1) g/dL Albumin/Globulin Ratio 1.4 1.3 (1.0-2.8) Lipase 28 (23-300) U/L Urine Color Yellow Urine Appearance Cloudy Urine pH 6.5 (4.5-8.0) Ur Specific [place] 1.025 (1.000-1.035) Urine Protein 1+ H (Negative) Urine Glucose (UA) Negative (Negative) g/dL Urine Ketones Negative (NEGATIVE) Urine Occult Blood Trace-intact (Negative) Urine Nitrate Positive H (Negative) Urine Bilirubin Negative (NEGATIVE) Urine Urobilinogen 0.2 (0.2) E.U./dL Ur Leukocyte Esterase 3+ H (NEGATIVE) Urine RBC 10-30/hpf H (0-5/HPF) Urine WBC 10-30/hpf H (0-5/HPF) Ur Squamous Epith Cells 0-1 /hpf (0-5/HPF) Urine Bacteria Many (>30) H (None) Ur Culture Indicated? Specimen cultured Vol Urine Centrifuged 10ml (spun) Stl C. cayetanensis PCR Not detected (Not Detect) Stool Rotavirus (PCR) Not detected (Not Detect) Stool Adenovirus (PCR) Not detected (Not Detect) Stool Astrovirus (PCR) Not detected (Not Detect) Stool Cryptosporidium PCR Not detected (Not Detect) Stl E.coli Shiga Tox PCR Not detected (Not Detect) St Sh/Enteroin Ecoli PCR Not detected (Not Detect) Stl Enterotoxigenic E PCR Not detected (Not Detect) Stool EPEC (PCR) Not detected (Not Detect) Stl E. histolytica PCR Not detected (Not Detect) Stool Giardia Lamblia PCR Not detected (Not Detect) Stool Sapovirus (PCR) Not detected (Not Detect) Stl P. shigelloides PCR Not detected (Not Detect) St Y.enterocolitica PCR Not detected (Not Detect) Stool Vibrio (PCR) Not detected (Not Detect) Stl Vibrio cholerae PCR Not detected (Not Detect) Stl Enteroaggr Ecoli PCR Not detected (Not Detect) Stl Norovirus GI/GII PCR Not detected (Not Detect) Campylobacter (PCR) Not detected (Not Detect) C. difficile Tox (PCR) Not detected (Not Detect) Salmonella (PCR) Not detected (Not Detect) Point of Care Testing Glucose POC 187 MDM Narrative Medical decision making narrative: Eight days of nonbloody diarrhea and 2 days of abdominal pain with vomiting. Abdomen is soft but generally tender to palpation. Hemodynamically stable. Laboratory work and imaging ordered. Patient did receive laboratory work last night, however she has been in the emergency department for over 12 hours prior to being placed in a room, so repeat laboratory work is ordered Laboratory work shows WBC count 9.0, hemoglobin 12.9, platelets 297, sodium 138, potassium 4.3, creatinine 1.21 (baseline for patient), glucose 206, lactic acid 1.6, normal liver enzymes. CT of the abdomen and pelvis without IV contrast shows fluid contents of the small bowel and large bowel likely enterocolitis. GI panel did not show any obvious pathogens. Urinalysis did have leukocyte esterase, nitrites, bacteria present. Patient informed of all lab and imaging findings. No obvious cause of diarrhea, but patient does not have any severe electrolyte derangements or significant change in her kidney function. Patient counseled that she may take Imodium if her diarrhea becomes intolerable. Antibiotics for UTI sent to pharmacy of choice. Antiemetics also sent to pharmacy of choice. Discharge Plan Departure Patient Disposition: Home Clinical Impression: Vomiting, Diarrhea, Acute UTI Instructions: DI for Urinary Tract Infection (UTI) Activity Restrictions/Additional Instructions: Your GI panel did not test positive for any pathogens at this time. Your urinalysis did indicate that you have an infection. Your laboratory work is stable and your CT scan showed generalized inflammation that can be found with a general GI bug. Take all antibiotics as prescribed. Antinausea medications have also been sent to your pharmacy. Follow up with your primary care doctor if you continue to experience diarrhea. Prescriptions: New cephalexin 500 mg capsule 500 mg PO Q12H Qty: 10 0RF dicyclomine 20 mg tablet 20 mg PO TID PRN (Reason: abdominal pain) Qty: 30 0RF promethazine 25 mg tablet 25 mg PO Q6H PRN (Reason: nausea and vomiting) Qty: 30 0RF No Action mupirocin 2 % ointment 1 applic topical TID Qty: 15 0RF bisoprolol fumarate 5 mg tablet 5 mg PO DAILY multivitamin Capsule 1 cap PO DAILY Qty: 0 [pen needles] See Rx Instructions subcut 5XD Qty: 450 1RF Rx Instructions: inject insulin subcut 5 times a day; losartan [Cozaar] 25 mg tablet 25 mg PO Q DAY Qty: 90 3RF (DME) Blood Glucose Test Strip See Dose Instructions .ROUTE .MEDSUPPLY Qty: 450 11RF Dose Instruction: As directed Rx Instructions: OneTouch Verio Test strips - test 5x daily as directed albuterol sulfate 90 mcg/actuation HFA aerosol inhaler See Rx Instructions .ROUTE .COMPLEX Qty: 6.7 1RF Dose Instruction: Inhale 2 puffs every 6 hours as needed for shortness of breath or wheezing Rx Instructions: Inhale 2 puffs every 6 hours as needed for shortness of breath or wheezing ondansetron 4 mg tablet,disintegrating 4 mg PO Q6-8H PRN (Reason: nausea and vomiting) Qty: 45 5RF cyclobenzaprine 10 mg tablet See Rx Instructions .ROUTE .COMPLEX Qty: 180 1RF Dose Instruction: Take 1 tablet (10 mg) by mouth 2 times daily as needed for TMJ AND MUSCLE SPASMS Rx Instructions: Take 1 tablet (10 mg) by mouth 2 times daily as needed for TMJ AND MUSCLE SPASMS montelukast 10 mg tablet 10 mg PO DAILY Qty: 90 1RF duloxetine 60 mg capsule,delayed release(DR/EC) 120 mg PO DAILY Qty: 180 1RF pantoprazole 40 mg tablet,delayed release (DR/EC) 40 mg PO DAILY Qty: 90 3RF oxycodone-acetaminophen [Percocet] 5-325 mg tablet 1 tab PO .qhs PRN (Reason: pain) 30 Days Qty: 30 0RF Rx Instructions: rx 1/3 oxycodone-acetaminophen [Percocet] 5-325 mg tablet 1 tab PO .qhs PRN (Reason: pain) 30 Days Qty: 30 0RF Rx Instructions: rx 2/3 oxycodone-acetaminophen [Percocet] 5-325 mg tablet 1 tab PO .qhs PRN (Reason: pain) 30 Days Qty: 30 0RF Rx Instructions: rx 3/3 fenofibrate 160 mg tablet 160 mg PO DAILY atorvastatin 40 mg tablet 40 mg PO DAILY levothyroxine 150 mcg tablet 150 mcg PO DAILY eszopiclone [Lunesta] 3 mg tablet 3 mg PO BEDTIME Qty: 30 5RF Ozempic 1 mg/dose (4 mg/3 mL) pen injector 1 mg SUBCUT QWEEK Qty: 3 0RF Rx Instructions: thru Endocrine Jardiance 10 mg tablet 10 mg PO DAILY Qty: 30 0RF Rx Instructions: thru endocrine Humulin R U-500 (Conc) Kwikpen 500 unit/mL (3 mL) insulin pen See Rx Instructions SUBCUT BEDTIME Qty: 6 0RF Rx Instructions: 110 u with breakfast, 110 units with lunch, 120 units with dinner. Through Endocrine. (DME) Respironics System One 60 series BIPAP Qty: 1 Dose Instruction: As directed Patient Comments: Pressure: IPAP 16 EPAP 11 DME: [facility] Rx Instructions: As directed Referrals: Marilyn Uriostegui DO [Primary Care Provider] - Stand Alone Forms: Patient Portal/API
[2023-09-06] MEDS: DROPERIDOL 5 MG/2 ML VIAL 2.5 MG IV (07:47)
[2023-09-06] MEDS: SODIUM CHLORIDE 0.9% 1,000 ML 1000 ML IV (07:48)
[2023-09-06 08:27] LABS: Add Manual Diff / Slide Review NO; Basophils Absolute Auto 0 /uL (0-100); Basophils Percent Auto 0.5 % (0-2); Eosinophils Absolute Auto 400 /uL (0-450); Eosinophils Percent Auto 4.4 % (2-4); Hematocrit 38.8 % (36-46); Hemoglobin 12.9 g/dL (12.0-16.0); Lymphocytes Absolute Auto 1800 /uL (1100-4500); Lymphocytes Percent Auto 20.5 % (25-40); Mean Corpuscular HGB Conc 33.4 % (30-36); Mean Corpuscular Hemoglobin 31.4 PG (26-34); Monocytes Absolute Auto 600 /uL (0-900); Monocytes Percent Auto 6.9 % (3-14); Neutrophils Absolute Auto 6100 /uL (1500-7000); Neutrophils Percent Auto 67.7 % (50-75); Platelet Count 297 X10^3/uL (150-400); Red Blood Cell Count 4.13 X10^6/uL (4.0-5.2); Red Cell Distribution Width 14.6 % (11.6-14.8)
[2023-09-06 08:49] LABS: Lactate (Lactic Acid) 1.6 mmol/L (0.7-2.1)
[2023-09-06 08:51] LABS: Alanine Aminotransferase 28 IU/L (<35); Albumin 4.3 g/dL (3.5-5.0); Albumin Globulin Ratio 1.3 (1.0-2.8); Alkaline Phosphatase 103 U/L (38-126); Aspartate Aminotransferase 40 IU/L (14-36); BUN Creatinine Ratio 14.9 (6-22); Bilirubin Total 0.5 mg/dL (0.2-1.3); Blood Urea Nitrogen 18 mg/dL (7-17); Calcium 9.9 mg/dL (8.4-10.2); Carbon Dioxide 20 mmol/L (22-32); Chloride 110 mmol/L (98-107); Estimated Glomerular Filt Rate 49 mL/min (>60); Globulin 3.4 g/dL (1.7-4.1); Glucose 206 mg/dL (80-110); HEMOLYSIS < 15 (0-50); Lipase 28 U/L (23-300); Potassium 4.3 mmol/L (3.4-5.1); Sodium 138 mmol/L (137-145); Total Protein 7.7 g/dL (6.3-8.2)
--- NOTE | 2023-09-06 10:00 | PC.NURSE ---
Patient reports her urine smells foul
[2023-09-06 10:14] LABS: Appearance Urine UA CLOUDY; Bilirubin Urine UA NEGATIVE (NEGATIVE); Color Urine UA YELLOW; Glucose Urine UA NEGATIVE (Negative); Ketones Urine UA NEGATIVE (NEGATIVE); Leukocyte Esterase Urine UA 3+ (NEGATIVE); Nitrite Urine UA POSITIVE (Negative); Occult Blood Urine UA TRACE-INTACT (Negative); Protein Urine UA 1+ (Negative); Specific Gravity Urine UA 1.025 (1.000-1.035); Urobilinogen Urine UA 0.2 E.U./dL (0.2)
[2023-09-06 10:28] LABS: pH Urine UA 6.5 (4.5-8.0)
[2023-09-06 10:29] LABS: Bacteria Urine Many (>30); RBC Urine 10-30/HPF (0-5/HPF); Squamous Epithelial Cell Urine 0-1 /HPF (0-5/HPF); Urine Volume 10mL (spun); WBC Urine 10-30/HPF (0-5/HPF)
[2023-09-06 10:30] LABS: Culture Indicated Urine Specimen Cultured
[2023-09-06 11:20] LABS: Adenovirus F 40/41 Not Detected (Not Detect); Astrovirus Not Detected (Not Detect); Campylobacter Not Detected (Not Detect); Clostridium difficile toxin AB Not Detected (Not Detect); Cryptosporidium Not Detected (Not Detect); Cyclospora cayetanensis Not Detected (Not Detect); Entamoeba histolytica Not Detected (Not Detect); Enteroaggregative E.coli Not Detected (Not Detect); Enteropathogenic E.coli Not Detected (Not Detect); Enterotoxigenic E.coli It/st Not Detected (Not Detect); Giardia lamblia Not Detected (Not Detect); Norovirus GI/GII Not Detected (Not Detect); Plesiomonsa shigelloides Not Detected (Not Detect); Rotavirus A Not Detected (Not Detect); Salmonella Not Detected (Not Detect); Sapovirus Not Detected (Not Detect); Shiga-like toxin-prod E.coli Not Detected (Not Detect); Shigella/Enteroinvasive E.coli Not Detected (Not Detect); Vibrio Not Detected (Not Detect); Vibrio cholerae Not Detected (Not Detect); Yersinia enterocolitica Not Detected (Not Detect)
== END 2023-09-06 11:53 | disposition home or self-care (01) ==
PROVIDERS: Emergency Medicine; Emergency Provider Emergency Medicine; PCP Family Medicine
DX: N39.0 Urinary tract infection, site not specified (principal); R19.7 Diarrhea, unspecified; R11.10 Vomiting, unspecified; Z79.899 Other long term (current) drug therapy
CPT/HCPCS: 36415; 74176; 80053; 81001; 83605; 83690; 83735; 85025; 87077; 87086; 87186; 87507; 96361; 96374; 96375; 96376; 99284; J1790; J2405

== ENCOUNTER → 2023-10-03 08:58 | Outpatient (CLI) | payer OTHER, SELFPAY ==
[2023-10-03 11:33] LABS: Hemoglobin A1C% w Est Avg Glu 7.8 % (4.0-6.0)
== END ==
PROVIDERS: PCP Family Medicine; Referring Provider Family Medicine; Visit Provider Family Medicine
DX: E11.65 Type 2 diabetes mellitus with hyperglycemia (principal)
CPT/HCPCS: 36415; 83036

== ENCOUNTER → 2023-11-21 11:08 | Outpatient (CLI) | payer OTHER, SELFPAY ==
[2023-11-21 12:26] LABS: Creatinine Urine Random 159.28 mg/dL
[2023-11-21 12:30] LABS: Microalbumin Urine Random 4.3 mg/dL (0-1.6)
[2023-11-21 14:54] LABS: Hemoglobin A1C% w Est Avg Glu 7.5 % (4.0-6.0)
[2023-11-21 15:17] LABS: BUN Creatinine Ratio 16.4 (6-22); Blood Urea Nitrogen 23 mg/dL (7-17); Calcium 9.6 mg/dL (8.4-10.2); Carbon Dioxide 26 mmol/L (22-32); Chloride 104 mmol/L (98-107); Cholesterol 134 mg/dL (140-199); Estimated Glomerular Filt Rate 41 mL/min (>60); Glucose 185 mg/dL (80-110); HDL Cholesterol 38 mg/dL (40-60); HEMOLYSIS < 15 (0-50); LDL Cholesterol Calculated 35 mg/dL (<100); Potassium 4.9 mmol/L (3.4-5.1); Sodium 137 mmol/L (137-145); Triglycerides 303 mg/dL (35-150)
[2023-11-21 15:33] LABS: Free T4, Direct Thyroxine 1.02 ng/dL (0.78-2.19)
[2023-11-21 15:46] LABS: Thyroid Stimulating Hormone 2.77 uIU/mL (0.47-4.68)
== END ==
PROVIDERS: PCP Family Medicine; Referring Provider Internal Medicine Endocrinology, Diabetes & Metabolism; Visit Provider Internal Medicine Endocrinology, Diabetes & Metabolism
DX: E11.42 Type 2 diabetes mellitus with diabetic polyneuropathy (principal); Z79.4 Long term (current) use of insulin; E03.9 Hypothyroidism, unspecified
CPT/HCPCS: 36415; 80048; 80061; 82043; 82570; 83036; 84439; 84443

== ENCOUNTER → 2024-01-31 10:43 | Outpatient (CLI) | payer OTHER, SELFPAY ==
[2024-01-31 13:05] LABS: Hemoglobin A1C% w Est Avg Glu 7.2 % (4.0-6.0)
== END ==
PROVIDERS: PCP Family Medicine; Referring Provider Podiatrist Foot & Ankle Surgery; Visit Provider Podiatrist Foot & Ankle Surgery
DX: E11.42 Type 2 diabetes mellitus with diabetic polyneuropathy (principal); M66.872 Spontaneous rupture of other tendons, left ankle and foot; M25.572 Pain in left ankle and joints of left foot; G89.29 Other chronic pain; M21.6X2 Other acquired deformities of left foot; Z79.4 Long term (current) use of insulin
CPT/HCPCS: 36415; 83036

== ENCOUNTER → 2024-09-03 07:37 | Outpatient (CLI) | payer OTHER, SELFPAY ==
[2024-09-03 08:22] LABS: Hemoglobin A1C% w Est Avg Glu 7.7 % (4.0-6.0)
[2024-09-03 08:33] LABS: Protein (Total) Urine Random 7 mg/dL (0-12); Protein Creatinine Ratio Urine 0.05 GRAM/24H
[2024-09-03 08:37] LABS: Blood Urea Nitrogen 21 mg/dL (7-17); Calcium 9.7 mg/dL (8.4-10.2); Carbon Dioxide 24 mmol/L (22-32); Chloride 106 mmol/L (98-107); Cholesterol 132 mg/dL (140-199); Estimated Glomerular Filt Rate 42 mL/min (>60); Glucose 163 mg/dL (70-99); HDL Cholesterol 40 mg/dL (40-60); HEMOLYSIS < 15 (0-50); Potassium 4.1 mmol/L (3.4-5.1); Sodium 140 mmol/L (137-145); Triglycerides 309 mg/dL (35-150)
[2024-09-03 08:51] LABS: Free T4, Direct Thyroxine 0.99 ng/dL (0.78-2.19)
[2024-09-03 09:05] LABS: Thyroid Stimulating Hormone 1.17 uIU/mL (0.47-4.68)
== END ==
PROVIDERS: PCP Family Medicine; Referring Provider Family Medicine; Visit Provider Internal Medicine Endocrinology, Diabetes & Metabolism
DX: E11.65 Type 2 diabetes mellitus with hyperglycemia (principal); E03.9 Hypothyroidism, unspecified; Z79.4 Long term (current) use of insulin
CPT/HCPCS: 36415; 80048; 80061; 82570; 83036; 84156; 84439; 84443